=== PATIENT | female | born 1985 | race Caucasian/White ===

== ENCOUNTER 2019-07-23 12:54 | Emergency (ER) | payer OTHER, SELFPAY ==
--- OUTSIDE RECORDS SUMMARY | 2019-07-23 12:59 | XMS REPORT ---
:1985 [facility] [address] [place] [address] Care Team Providers Name Role Phone UNKNOWN, REFFERING Primary Care Provider Unavailable TOMY ELIAS Unavailable Unavailable LUIS FELIPE LAKHANI Unavailable Unavailable DANIELA ZAYAS Unavailable Unavailable CARLOS FLORES Unavailable Unavailable ILDA PETERSON Unavailable Unavailable Payers Payer Name Policy Type Policy Number Effective Date Expiration Date Problems This patient has no known problems. Allergies, Adverse Reactions, Alerts Allergy Allergy Status Severity Reaction(s) Onset Inactive Treating Comments Name Type Date Date Clinician Sulfa DA Active [place] 2018-04 (Sulfonamid - e 00:00:0 Antibiotics 0 ) iodine DA Active [place] 2018-04 00:00:0 0 cefixime DA Active [place] 2018-04 00:00:0 0 Medications This patient has no known medications. Results Test Description Test Time Test Comments Text Results Atomic Results Result Comments - 2019-03-01 FAX: Tomy Hirsch [phone] [place]: St: CHEST 16:16:00 REG 2 V [facility] 1985 Age/S: 33/F [address] [facility] Unit # : [id number] Loc: E.EXP [place], [place] Phys : Tomy Hrisch [address] Acct : [id number] Dis Date: Status: REG ER PHONE #: [phone] Exam Date: 03/01/2019 1604 FAX #: [phone] Reason: SOB EXAMS: CPT CODE: [id number] XR CHEST 2 V 66359 EXAMINATION: - XR CHEST 2 V. LOCATION: B2. HISTORY: SOB. COMPARISON: Radiograph dated 10/03/2018. TECHNIQUE: PA and lateral views of the chest were obtained. FINDINGS: The heart is normal in size. Mild right middle lobe and left lower lobe opacities are present. No acute osseous abnormality is identified. IMPRESSION: Mild right middle lobe and left lower lobe opacities , which may represent atelectasis or infiltrates. at 9799 Reported and signed by: Thierry Giron M.D. CC: Tomy GAN Technologist: LISA COOLEY Trnscrd Date/Time/By: 03/01/2019 (1616) : By: [email or web address] PAGE 1 Signed Report FAX: Tomy Hirsch [phone] [place]: St: REG --------- Name: [facility] 1985 Age/S: 33/F [address] [facility] Unit # : [id number] Loc: E.EXP [place], [place] Phys : Tomy Hirsch [address] Acct : [id number] Dis Date: Status: REG ER PHONE #: [phone] Exam Date: 03/01/2019 1604 FAX #: [phone] Reason: SOB EXAMS: CPT CODE: [id number] XR CHEST 2 V 83118 <Continued> Orig Print D/T: S: 03/01/2019 (7644) PAGE 2 Signed Report BASIC METABOLIC PANEL 2019-02-20 07:27:00 Test Item Value Reference Range Comments SODIUM (test code=NA) 141 mEq/L 134-147 POTASSIUM (test code=K) 4.0 mEq/L 3.4-5.0 CHLORIDE (test code=CL) 111 mEq/L 100-108 CARBON DIOXIDE (test code=CO2) 24 mEq/L 21-33 ANION GAP (test code=GAP) 10 0-20 GLUCOSE (test code=GLU) 88 mg/dL 70-110 BLOOD UREA NITROGEN (test code=BUN) 10 mg/dL 7-18 GLOMERULAR FILTRATION RATE (test 97.0 105-110 Units of measure=ml/min/1.73 code=GFR) m2 CREATININE (test code=CREAT) 0.7 mg/dL 0.6-1.3 CALCIUM (test code=CA) 8.2 mg/dL 8.0-10.5 CBC W/AUTO [id number] 06:43:00 Test Item Value Reference Range Comments WHITE BLOOD CELL (test code=WBC) 5.54 x10 3/uL 4.5-11.0 RED BLOOD CELL (test code=RBC) 4.10 x10 6/uL 3.54-5.02 HEMOGLOBIN (test code=HGB) 12.8 g/dL 11.0-15.0 HEMATOCRIT (test code=HCT) 39.2 % 33.0-45.0 MEAN CELL VOLUME (test code=MCV) 95.6 fL 81.0-99.0 MEAN CELL HGB (test code=MCH) 31.2 pg 27.0-33.0 MEAN CELL HGB CONCETRATION (test code=MCHC) 32.7 g/dL 33.0-37.0 RED CELL DISTRIBUTION WIDTH CV (test code=RDW) 12.8 % 11.5-14.5 RED CELL DISTRIBUTION WIDTH SD (test 44.7 fL 37.0-54.0 code=RDW-SD) PLATELET COUNT (test code=PLT) 188 x10 3/uL 150-400 MEAN PLATELET VOLUME (test code=MPV) 9.4 fL 7.0-9.0 NEUTROPHIL % (test code=NT%) 31.3 % 56.0-77.0 IMMATURE GRANULOCYTE % (test code=IG%) 0.2 % 0.0-2.0 LYMPHOCYTE % (test code=LY%) 57.4 % 14.0-32.0 MONOCYTE % (test code=MO%) 7.0 % 4.8-9.0 EOSINOPHIL % (test code=EO%) 3.6 % 0.3-3.7 BASOPHIL % (test code=BA%) 0.5 % 0.0-2.0 NUCLEATED RBC % (test code=NRBC%) 0.0 % 0-0 NEUTROPHIL # (test code=NT#) 1.73 x10 3/uL 2.0-7.6 IMMATURE GRANULOCYTE # (test code=IG#) 0.01 x10 3/uL 0.00-0.03 LYMPHOCYTE # (test code=LY#) 3.18 x10 3/uL 1.0-3.8 MONOCYTE # (test code=MO#) 0.39 x10 3/uL 0.1-0.8 EOSINOPHIL # (test code=EO#) 0.20 x10 3/uL 0.0-0.2 BASOPHIL # (test code=BA#) 0.03 x10 3/uL 0.0-0.2 NUCLEATED RBC # (test code=NRBC#) 0.00 x10 3/uL 0.0-0.1 MANUAL DIFF REQUIRED (test code=MDIFF) NO CBC W/AUTO [id number] 14:40:00 Test Item Value Reference Range Comments WHITE BLOOD CELL (test 5.19 x10 3/uL 4.5-11.0 code=WBC) RED BLOOD CELL (test 4.43 x10 6/uL 3.54-5.02 code=RBC) HEMOGLOBIN (test code=HGB) 13.6 g/dL 11.0-15.0 HEMATOCRIT (test code=HCT) 40.5 % 33.0-45.0 MEAN CELL VOLUME (test 91.4 fL 81.0-99.0 code=MCV) MEAN CELL HGB (test code=MCH) 30.7 pg 27.0-33.0 MEAN CELL HGB CONCETRATION 33.6 g/dL 33.0-37.0 (test code=MCHC) RED CELL DISTRIBUTION WIDTH 12.8 % 11.5-14.5 CV (test code=RDW) RED CELL DISTRIBUTION WIDTH 43.2 fL 37.0-54.0 SD (test code=RDW-SD) PLATELET COUNT (test 201 x10 3/uL 150-400 code=PLT) MEAN PLATELET VOLUME (test 9.0 fL 7.0-9.0 code=MPV) NEUTROPHIL % (test code=NT%) 26.6 % 56.0-77.0 IMMATURE GRANULOCYTE % (test 0.2 % 0.0-2.0 code=IG%) LYMPHOCYTE % (test code=LY%) 62.8 % 14.0-32.0 MONOCYTE % (test code=MO%) 7.5 % 4.8-9.0 EOSINOPHIL % (test code=EO%) 2.5 % 0.3-3.7 BASOPHIL % (test code=BA%) 0.4 % 0.0-2.0 NUCLEATED RBC % (test 0.0 % 0-0 code=NRBC%) NEUTROPHIL # (test code=NT#) 1.38 x10 3/uL 2.0-7.6 IMMATURE GRANULOCYTE # (test 0.01 x10 3/uL 0.00-0.03 code=IG#) LYMPHOCYTE # (test code=LY#) 3.26 x10 3/uL 1.0-3.8 MONOCYTE # (test code=MO#) 0.39 x10 3/uL 0.1-0.8 EOSINOPHIL # (test code=EO#) 0.13 x10 3/uL 0.0-0.2 BASOPHIL # (test code=BA#) 0.02 x10 3/uL 0.0-0.2 NUCLEATED RBC # (test 0.00 x10 3/uL 0.0-0.1 code=NRBC#) MANUAL DIFF REQUIRED (test NO SLIDE REVIEWED, CONSISTENT code=MDIFF) WITH AUTO DIFF. [id number] 10:06:00 Test Item Value Reference Range Comments AMYLASE (test code=JOSUÉ) 23 UNITS/L 25-115 [id number] 10:06:00 Test Item Value Reference Range Comments LIPASE (test code=LIP) 76 IUnit/L 73-393 HGBA1C%2019-02-19 09:05:00 Test Item Value Reference Range Comments HGBA1C% (test code=HGBA1C%) 4.9 %A1C 4.8-6.0 CBC W/AUTO [id number] 08:08:00 Test Item Value Reference Range Comments WHITE BLOOD CELL (test code=WBC) 5.19 x10 3/uL 4.5-11.0 RED BLOOD CELL (test code=RBC) 4.43 x10 6/uL 3.54-5.02 HEMOGLOBIN (test code=HGB) 13.6 g/dL 11.0-15.0 HEMATOCRIT (test code=HCT) 40.5 % 33.0-45.0 MEAN CELL VOLUME (test code=MCV) 91.4 fL 81.0-99.0 MEAN CELL HGB (test code=MCH) 30.7 pg 27.0-33.0 MEAN CELL HGB CONCETRATION (test code=MCHC) 33.6 g/dL 33.0-37.0 RED CELL DISTRIBUTION WIDTH CV (test code=RDW) 12.8 % 11.5-14.5 RED CELL DISTRIBUTION WIDTH SD (test 43.2 fL 37.0-54.0 code=RDW-SD) PLATELET COUNT (test code=PLT) 201 x10 3/uL 150-400 MEAN PLATELET VOLUME (test code=MPV) 9.0 fL 7.0-9.0 LYMPHOCYTE % (test code=LY%) % 14.0-32.0 MANUAL DIFF REQUIRED (test code=MDIFF) BASIC METABOLIC [id number] 07:27:00 Test Item Value Reference Range Comments SODIUM (test code=NA) 138 mEq/L 134-147 POTASSIUM (test code=K) 3.7 mEq/L 3.4-5.0 CHLORIDE (test code=CL) 110 mEq/L 100-108 CARBON DIOXIDE (test code=CO2) 23 mEq/L 21-33 ANION GAP (test code=GAP) 9 0-20 GLUCOSE (test code=GLU) 89 mg/dL 70-110 BLOOD UREA NITROGEN (test 11 mg/dL 7-18 code=BUN) GLOMERULAR FILTRATION RATE 97.0 105-110 Units of measure=ml/min/1.73 (test code=GFR) m2 CREATININE (test code=CREAT) 0.7 mg/dL 0.6-1.3 CALCIUM (test code=CA) 8.0 mg/dL 8.0-10.5 THYROID STIMULATING [id number] 07:27:00 Test Item Value Reference Range Comments THYROID STIMULATING HORMONE (test 2.66 0.42-5.47 Results in karen- [employer] code=TSH) Units/mL [id number] 00:23:00 Test Item Value Reference Range Comments TROPONIN-I (test < 0.015 ng/mL 0.000-0.045 Negative: <=0.045 code=TROPI) Positive: >=0.046 Correlation with serial results, other cardiac markers andclinical findings is necessary to determine the clinicalsignificance of this result. Results using different methodologies should not be comparedto one another as quantitative results may vary by method. VALPROIC ACID (DEPAKENE)2019-02-19 00:23:00 Test Item Value Reference Range Comments VALPROIC ACID (DEPAKENE) (test code=VALP) 45 mcg/mL 50.0-100.0 [id number] 21:11:00 Test Item Value Reference Range Comments TROPONIN-I (test < 0.015 ng/mL 0.000-0.045 Negative: <=0.045 code=TROPI) Positive: >=0.046 Correlation with serial results, other cardiac markers andclinical findings is necessary to determine the clinicalsignificance of this result. Results using different methodologies should not be comparedto one another as quantitative results may vary by method. COMMENTS: 3 troponins total (including troponin done in ED)BASIC METABOLIC [id number] 18:07:00 Test Item Value Reference Range Comments SODIUM (test code=NA) 141 mEq/L 134-147 POTASSIUM (test code=K) 5.1 mEq/L 3.4-5.0 SPECIMEN 1+ HEMOLYZED.Results known to be adversely affected by hemolysis are: Potassium Magnesium LDH Phosphorus CHLORIDE (test code=CL) 107 mEq/L 100-108 CARBON DIOXIDE (test code=CO2) 22 mEq/L 21-33 ANION GAP (test code=GAP) 17 0-20 GLUCOSE (test code=GLU) 95 mg/dL 70-110 BLOOD UREA NITROGEN (test 11 mg/dL 7-18 code=BUN) GLOMERULAR FILTRATION RATE 97.0 105-110 Units of measure=ml/min/1.73 (test code=GFR) m2 CREATININE (test code=CREAT) 0.7 mg/dL 0.6-1.3 CALCIUM (test code=CA) 8.4 mg/dL 8.0-10.5 [id number] 18:07:00 Test Item Value Reference Range Comments TROPONIN-I (test < 0.015 ng/mL 0.000-0.045 Negative: <=0.045 code=TROPI) Positive: >=0.046 Correlation with serial results, other cardiac markers andclinical findings is necessary to determine the clinicalsignificance of this result. Results using different methodologies should not be comparedto one another as quantitative results may vary by method. HCG SERUM [id number] 17:54:00 Test Item Value Reference Range Comments HCG SERUM QUAL (test code=HCGQL) SERUM NEGATIVE NEGATIVE - MRA NECK W/O [id number] 17:34:00 FAX: Juan Carlos Serrato MD [place]: St: REG Name: EUGENE GREWAL [facility] : 1985 Age/S: 33/F [address] [place] [address] Blvd Unit#: [id number] Loc: G.ERS[address] [place] [address] Phys: Juan Carlos Howell MD Acct: [id number] Dis Date: Status: REG ER PHONE #: [phone] Exam Date: 02/18/2019 1718 FAX #: [phone] Reason: left sided weakness EXAMS: CPT CODE: [id number] MRA NECK W/O CONT 95762 MR ANGIOGRAM NECK WITHOUT CONTRAST INDICATION: left sided weakness. TECHNIQUE: MR angiography of the neck was performed with [id number]-ua-hkbvec imaging and three-dimensional subtracted reconstructions. COMPARISONS:MRA head, CT head, MRI brain 02/18/2019 FINDINGS: Patient motion mildly limits this evaluation. The vertebral arteries reveal no aneurysm, dissection or high-grade luminal stenosis as visualized. The bilateral common carotid and internal carotid arteries reveal no aneurysm, dissection or high-grade luminal stenosis as visualized. IMPRESSION: 1. Patient motion mildly limits this evaluation. There is no high-grade arterial stenosis, arterial occlusion, dissection or aneurysm detected in the neck. CAROTID STENOSIS REFERENCE USING NASCET CRITERIA: % ICA stenosis=(1-narrowest ICA diameter/ diameter of distal cervical ICA) x 100 -Mild: <50% stenosis -Moderate: 50-69% stenosis -Severe: 70-94% stenosis - Near occlusion: 95-99% stenosis -Occluded: 100% stenosis at 4548 Reported and signed by: Carlos Oreilly D.O. PAGE 1 Signed Report (CONTINUED) FAX: Juan Carlos Serrato MD [phone]: KVNG St: REG Name: EUGENE GREWAL [facility] : 1985 Age/S: 33/F [address] [place] [address] Unit #: [id number] Loc: G.ERS[address] [place] [address] Phys: Juan Carlos Howell MD Acct: [id number] Dis Date: Status: REG ER PHONE #: [phone] Exam Date: 02/18/2019 1719 FAX #: [phone] Reason: left sided weakness EXAMS: CPT CODE: [id number] MRA NECK W/O CONT 05717 <Continued> CC: Juan Carlos Howell MD Technologist: Yana Flaherty RT( MR)(CT) Trnwird Date/Time/By: 02/18/2019 (2254) : By: [email or web address] Orig Print D/T: S: 02/18/2019 (1832) PAGE 2 Signed Report- MRI BRAIN W/O [id number] 17:30:00 FAX: Juan Carlos Serrato MD [phone] [place]: St: REG Name: EUGENE GREWAL [facility] : 1985 Age/S: 33/F [address] [place] [address] Unit#: [id number] Loc : Bl[place]ERS[address] [place] [address] Phys: Juan Carlos Howell MD Acct: [id number] Dis Date: Status: REG ER PHONE #: [phone] Exam Date: 02/18/2019 1718 FAX #: [phone] Reason: left sided weakness EXAMS: CPT CODE: [id number] MRI BRAIN W/O CONT 37118 MRI BRAIN WITHOUT CONTRAST INDICATION: Left-sided weakness, facial droop, seizure. TECHNIQUE: Multiple MR sequences of the brain were performed without contrast. COMPARISONS: CT head, MR angiogram head and neck 02/18/2019 FINDINGS: The paranasal sinuses are clear as visualized. There is a small right mastoid air cell effusion. The vascular flow voids are preserved. The cerebral ventricles are normal caliber. There is no restricted water diffusion. Thereis no cerebral mass effect, midline shift, intracranial hemorrhage or acute large vesselterritory cerebral cortical edema. There is no cerebral mass effect, midline shift, intracranial hemorrhage or acute large vessel territory cerebral cortical edema. Specifically, thehippocampal and parahippocampal gyri are symmetric and appear normal. There is no focal volume loss or mass. There is no edema. IMPRESSION: 1. Normal brain with no acute intracranial process. No evidence of acute ischemia or edema. 2. There is a small right mastoid air cell effusion. * * Electronically Signed by Zoie Douglas on at 1730 Reportedand signed by: Carlos Oreilly D.O. CC: Juan Carlos Howell MD Technologist: Yana Flaherty RT(MR)(CT) Trnscrd Date/Time/By: 2018 (8580) : By: [email or web address] Orig Print D/T: S: 02/18/2019 (2075) PAGE 1 Signed Report- MRA HEAD W/O [id number] 17:24:00 FAX: Juan Carlos Serrato MD [phone] [place]: St: REG-- Name: EUGENE GREWAL [facility] : 1985 Age/S: 33/F [address] [place] [address] Blvd Unit#: [id number] Loc: G.ERS[address] [place] [address] Phys: Juan Carlos Howell MD Acct: [id number] Dis Date: Status: REG ER PHONE #: [phone] Exam Date: 02/18/2019 1719 FAX #: [phone] Reason: left sided weakness EXAMS: CPT CODE: [id number] MRA HEAD W/O CONTRAST 48718 MR ANGIOGRAM HEAD INDICATION: Left-sided weakness, facial droop, seizure. TECHNIQUE: MR angiography of the head was performed with [id number]-rd-htvuqj imaging and three-dimensional subtracted reconstructions. COMPARISONS: CT brain 02/18/2019, MRI brain 02/18/2019 FINDINGS: The vertebral arteries reveal no aneurysm, dissection or high-grade luminal stenosis. The basilar artery reveals no aneurysm, dissection, high-grade stenosis or occlusion. The posterior cerebral arteries reveal no aneurysm, dissection or high-grade luminal stenosis. There is a right posterior to indicating cerebral artery. The internal carotid arteries reveal no aneurysm, dissection or high-grade luminal stenosis. The middle cerebral arteries reveal no aneurysm, dissection or high-grade luminal stenosis. Theanterior cerebral arteries reveal no aneurysm, dissection or high- grade luminal stenosis. IMPRESSION: 1. Patient motion mildly limits the evaluation. There is no arterial high-grade stenosis, occlusion, dissection, aneurysm or vascular malformation detected. CAROTID STENOSIS REFERENCE USING NASCET CRITERIA: % ICA stenosis=(1-narrowest ICA diameter/ diameter of distal cervical ICA) x 100 -Mild: <50% stenosis -Moderate: 50-69% stenosis -Severe: 70-94% stenosis PAGE 1 Signed Report (CONTINUED) FAX: Juan Carlos Serrato MD [phone] [place]: St: REG Name: CARMINA EUGENE [facility] : 1985 Age/S: 33/F [address] [place] [address] Blvd Unit #: [id number] Loc:G.ERS3 [place] [address] Phys: Juan Carlos Howell MD Acct: [id number] Dis Date: Status: REG ER PHONE #: [phone] Exam Date: 02/18/2019 1719 FAX #: [phone] Reason: left sided weakness EXAMS: CPT CODE: [id number] MRA HEAD W/O CONTRAST 84694 <Continued> -Near occlusion: 95-99 % stenosis -Occluded: 100% stenosis Electronically Signed by Zoie Oreilly on 02/18 at 1724 Reported and signed by: Carlos Oreilly D.O. CC: Juan Carlos Howell MD Technologist: Yana Flaherty RT(MR)(CT) Trnwird Date/Time/By: 2018 (1723) : By: [email or web address] Orig Print D/T: S: 02/18/2019 (1726) PAGE 2 Signed Report- CT HEAD/BRAIN W/O [id number] 16:30:00 Name: EUGENE GREWAL [facility] [place] : 1985 Age/S: 33 / F [address] [place] [address] Unit #: [id number] Loc: [place] [id number] Phys: Juan Carlos Howell MD Acct: [id number] Dis Date: Status: PRE ER PHONE #: [phone] Exam Date: 02/18/2019 1612 FAX #: [phone] Reason: LEFT SIDED WEAKNESS EXAMS: CPTCODE: [id number] CT HEAD/BRAIN W/O CONT [address] HEAD INDICATION: Left-sided weakness. Facial droop. Seizure. TECHNIQUE: Unenhanced CT was performed from the skull vertex to the foramen magnum with axial, coronal and sagittal reconstructions. Radiation dose length product 810 mGy-cm. COMPARISONS: CT head 11/19/2018, 08/22/2018 FINDINGS: The paranasal sinuses areclear as visualized. There is suggestion of a trace right mastoid air cell effusion. The left mastoid air cells are clear. There is no acute depressed skull fracture.The cerebral ventricles are normal caliber. There is no cerebral mass effect, midline shift, intracranial hemorrhage or acute large vessel territory cerebral cortical edema. IMPRESSION: 1. There is no acute intracranial process. No intracranial hemorrhage or acute cerebral edema. The [place] Stroke Program Early CT Score (ASPECTS) is 10/10. This report contains findings that may be critical to patient care. The findings were discussed with Dr. Obando at 02/18/2019 4:30 PM ADVISORY INTERN. at 1630 Reported and signed by: Carlos Oreilly D.O. CC: Juan Carlos Howell MD Technologist:Opal Resendez, RT (R)(CT) CTDI: DLP: Trnscb Date/Time: 02/18/2019 (1629) [email or web address] Orig Print D/T: S: 02/18/2019 (1434) CTDI : DLP: PAGE 1 Signed ReportPROTHROMBIN [id number] 16:20:00 Test Item Value Reference Range Comments PROTHROMBIN TIME PATIENT 13.1 SECONDS 9.3-12.9 (test code=PTP) INTERNATIONAL NORMAL RATIO 1.2 0.8-1.2 TARGET INR BY (test code=INR) INDICATION Indication INR1. Prophylaxis of venous thrombosis 2.0 - 3.0 (orthopedic surgery), Prophylaxis of venous thrombosis (other than high-risk surgery), Treatment of Deep Vein Thrombosis/Pulmonary Embolism, Prevention of systemic embolism - Tissue heart valves, Acute Myocardial Infarction (to prevent systemic embolism), Valvular heart disease, Atrial Fibrillation, Bileaflet mechanical valve in aortic position.2. Mechanical prosthetic valves (high risk), 2.5 - 3.5 Presence of Lupus Anticoagulant or Antiphospholipid Antibodies, Prevention of systemic embolism - Acute Myocardial Infarction (to prevent recurrent infarct). THROMBOPLASTIN TIME [id number] 16:20:00 Test Item Value Reference Range Comments THROMBOPLASTIN TIME PARTIAL 32.8 Seconds 25.0-39.5 Therapeutic Range: (test code=PTT) 61.8-83.8 Sec Effective 12/05/2013 CBC W/O [id number] 16:14:00 Test Item Value Reference Range Comments WHITE BLOOD CELL (test code=WBC) 4.81 x10 3/uL 4.5-11.0 RED BLOOD CELL (test code=RBC) 4.79 x10 6/uL 3.54-5.02 HEMOGLOBIN (test code=HGB) 14.8 g/dL 11.0-15.0 HEMATOCRIT (test code=HCT) 43.5 % 33.0-45.0 MEAN CELL VOLUME (test code=MCV) 90.8 fL 81.0-99.0 MEAN CELL HGB (test code=MCH) 30.9 pg 27.0-33.0 MEAN CELL HGB CONCETRATION (test code=MCHC) 34.0 g/dL 33.0-37.0 RED CELL DISTRIBUTION WIDTH CV (test code=RDW) 12.9 % 11.5-14.5 RED CELL DISTRIBUTION WIDTH SD (test 42.8 fL 37.0-54.0 code=RDW-SD) PLATELET COUNT (test code=PLT) 229 x10 3/uL 150-400 MEAN PLATELET VOLUME (test code=MPV) 9.0 fL 7.0-9.0 - CT ABD PELVIS W/O [id number] 05:31:00 FAX: Ellen Rich MD [place]: St: REG Name: EUGENE GREWAL [facility] : 1985 Age/S: 33/F [address] [facility] Unit: [id number] Loc: ELIAN [place], [place] Phys: [place] [id number] Acct: [id number] Dis Date: Status: REG ER PHONE #: [phone] Exam Date: 12/18/2018 0519 FAX #: [phone] Reason: abd pain EXAMS: CPT CODE: [id number] CT ABD PELVIS W/O CONT 91701 EXAM: CT ABDOMEN AND PELVIS WITHOUT CONTRAST. INDICATION: Abdominal pain COMPARISON: July 21, 2014 TECHNIQUE: Axial CT imaging of the abdomen and pelvis was obtained without administration of intravenous contrast. Coronal and sagittal reformatted images were submitted for review. IV contrast: None FINDINGS: The heart size is normal. The lung bases are clear. No pericardial or pleural effusion is identified. The noncontrast appearance of the liver, spleen, gallbladder, pancreas, and left adrenal glands is unremarkable. No focal liver lesionsare identified. No intrahepatic biliary duct dilatation. There is a cystic lesion in the region of the right adrenal gland measuring 3.9 x 3.5 cm. This is similar to slightly larger compared to the prior examination. The kidneys are normal in size and appearance. Nohydronephrosis or nephrolithiasis is identified. The urinary bladder is normal.The stomach, small bowel, large bowel , and appendix are normal in appearance. No bowel obstruction is identified. No lymphadenopathy is identified in the abdomen or pelvis. No free fluid or free air. The IVC is normal. The abdominal aorta is normal in course and caliber. The uterus is normal in size. There is a right ovarian cyst measuring 2.7 x 1.7 cm. No acute osseous abnormality is identified. IMPRESSION: No acute abnormality in the abdomen or pelvis. Normal appendix. Right ovarian cyst measuring 2.7 x 1.7 cm. LOCATION: B2 This CT exam was performed according to our departmental dose PAGE 1 Signed Report (CONTINUED) FAX: Ellen Rich MD [place]: St: REG Name: EUGENE GERWAL [facility] : 1985 Age/S: 33/F [address] [facility] Unit: [id number] Loc: [place], [place] Phys: Ellen Velasquez [facility] [address] Acct: [id number] Dis Date: Status: REG ER PHONE #: [phone] Exam Date: 12/18/2018518 FAX #: [phone] Reason: abd painEXAMS: CPT CODE: [id number] CT ABD PELVIS W/O CONT 45572 < Continued> optimization program, which includes automated exposure control, adjustment of the mA and or kV according to patient size and/ or use of iterative reconstruction technique. at 0531 Reported and signed by: Latha Flanagan M.D. CC: Ellen Velasquez MD Technologist: SANIA Liu Dt/Tm: 12/18/2018 (0531) 16 Orig Print D /T: S: 12/18/2018 (0534 PAGE 2 Signed ReportCOMPREHENSIVE METABOLIC [id number] 04:22:00 Test Item Value Reference Range Comments SODIUM (test code=NA) 139 mmol/l 134.0-147.0 POTASSIUM (test code=K) 3.6 mmol/L 3.6-5.2 CHLORIDE (test code=CL) 102 mmol/l 98.0-107.0 CARBON DIOXIDE (test code=CO2) 23.7 mmol/l 21.0-33.0 ANION GAP (test code=GAP) 16.9 0-20 GLUCOSE (test code=GLU) 101 mg/dl 70.0-110.0 BLOOD UREA NITROGEN (test code=BUN) 16 mg/dl 7.0-18.0 CREATININE (test code=CREAT) 0.62 mg/dL 0.60-1.30 GFR NON BLACK (test code=GFRNONBLACK) 118 mL/min 105-110 GFR BLACK (test code=GFRBLACK) 143 mL/min 127-133 TOTAL PROTEIN (test code=PROT) 7.9 gm/dL 6.4-8.2 ALBUMIN (test code=ALB) 4.1 gm/dl 3.2-4.7 CALCIUM (test code=CA) 10.1 mg/dl 8.0-10.5 BILIRUBIN TOTAL (test code=BILT) 0.3 mg/dl 0.0-1.0 SGOT/AST (test code=AST) 14 Units/L 15.0-37.0 SGPT/ALT (test code=ALT) 29 Units/L 12.0-78.0 ALKALINE PHOSPHATASE TOTAL (test code=ALKP) 54 Units/L 50.0-136.0 [id number] 04:22:00 Test Item Value Reference Range Comments LIPASE (test code=LIP) 105 Units/L 65.0-230.0 [id number] 04:22:00 Test Item Value Reference Range Comments TROPONIN-I (test <0.02 NG/ML 0.00-0.06 REFERENCE RANGE TROPONIN I code=TROPI) HEALTHY INDIVIDUALS: <0.06 ng/mL R/O ISCHEMIA: 0.07 - 0.60 ng/mL CUT-OFF RANGE FOR AMI: 0.60 - 1.5 ng/mL DRUGS OF ABUSE SCREEN [id number] 04:18:00 Test Item Value Reference Range Comments URN COCAINE (test POSITIVE NEGATIVE UNCONFIRMED INITIAL SCREENING code=COCAURN) ONLY; SUGGEST ADDITIONALCONFIRMATORY TESTING.Cocaine cut-off concentration: 300 ng/mL URN CANNABINOIDS (test POSITIVE NEGATIVE UNCONFIRMED INITIAL SCREENING code=CANNABURN) ONLY; SUGGEST ADDITIONALCONFIRMATORY TESTING.Cannabinoids cut-off concentration: 50 ng/mL URN AMPHETAMINE (test NEGATIVE NEGATIVE Amphetamine cut-off concentration: code=AMPHETURN) 1000 ng/mL URN BARBITURATE (test NEGATIVE NEGATIVE Barbiturate cut-off concentration: code=BARBITURN) 200 ng/mL URN BENZODIAZEPINE (test NEGATIVE NEGATIVE Benzodiazepine cut-off code=BENZOURN) concentration: 200 ng/mL URN OPIATES (test NEGATIVE NEGATIVE Opiates cut-off concentration: 200 code=OPIATURN) ng/mL URN PHENCYCLIDINE (PCP) NEGATIVE NEGATIVE Phencyclidine(PCP) cut-off (test code=PHENCURN) concentration: 25 ng/ml URN METHADONE (test NEGATIVE NEGATIVE Methadone cut-off concentration: code=METHAURN) 300 ng/mL COMPREHENSIVE METABOLIC [id number] 04:10:00 Test Item Value Reference Range Comments SODIUM (test code=NA) 139 mmol/l 134.0-147.0 POTASSIUM (test code=K) 3.6 mmol/L 3.6-5.2 CHLORIDE (test code=CL) 102 mmol/l 98.0-107.0 CARBON DIOXIDE (test code=CO2) 23.7 mmol/l 21.0-33.0 ANION GAP (test code=GAP) 16.9 0-20 GLUCOSE (test code=GLU) mg/dl 70.0-110.0 BLOOD UREA NITROGEN (test code=BUN) mg/dl 7.0-18.0 CREATININE (test code=CREAT) mg/dL 0.60-1.30 GFR NON BLACK (test code=GFRNONBLACK) mL/min 105-110 GFR BLACK (test code=GFRBLACK) mL/min 127-133 TOTAL PROTEIN (test code=PROT) gm/dL 6.4-8.2 ALBUMIN (test code=ALB) gm/dl 3.2-4.7 CALCIUM (test code=CA) mg/dl 8.0-10.5 BILIRUBIN TOTAL (test code=BILT) mg/dl 0.0-1.0 SGOT/AST (test code=AST) Units/L 15.0-37.0 SGPT/ALT (test code=ALT) Units/L 12.0-78.0 ALKALINE PHOSPHATASE TOTAL (test code=ALKP) Units/L 50.0-136.0 [id number] 04:10:00 Test Item Value Reference Range Comments LIPASE (test code=LIP) Units/L 65.0-230.0 URINALYSIS [id number] 04:09:00 Test Item Value Reference Range Comments UA COLOR (test code=COLU) YELLOW UA APPEARANCE (test code=APPU) SLHZY UA GLUCOSE DIPSTICK (test code=DGLUU) NORMAL mg/dl NORMAL UA BILIRUBIN DIPSTICK (test code=BILU) NEGATIVE mg/dL NEGATIVE UA KETONE DIPSTICK (test code=KETU) NEGATIVE mg/dl NEGATIVE UA SPECIFIC GRAVITY (test code=SGU) 1.015 1.000-1.030 UA BLOOD DIPSTICK (test code=JULIO) 10 Delfin/micL Delfin/micL NEGATIVE UA PH DIPSTICK (test code=JEFFERY) 8.0 5.0-9.0 UA PROTEIN DIPSTICK (test code=PROU) NEGATIVE mg/dl NEGATIVE UA UROBILINIOGEN DIPSTICK (test NORMAL mg/dl NORMAL code=URO) UA NITRITE DIPSTICK (test code=JOHANNE) NEGATIVE NEGATIVE UA LEUKOCYTE ESTERASE DIPSTICK (test NEGATIVE Slim/micL NEGATIVE code=LEUU) UA WBC (test code=WBCU) 3-5/HPF WBC/HPF NONE UA RBC (test code=RBCU) 0-2 RBC/HPF 0-3 UA EPITHELIAL CELLS (test code=EPIU) 5-10 EPI/HPF 0-3 UA BACTERIA (test code=BACU) MANY NONE UA MUCUS (test code=MUCU) 2+ UR HCG [id number] 04:09:00 Test Item Value Reference Range Comments UR HCG QUAL (test code=HCGQLU) NEGATIVE NEGATIVE URINALYSIS [id number] 04:05:00 Test Item Value Reference Range Comments UA COLOR (test code=COLU) YELLOW UA APPEARANCE (test code=APPU) SLHZY UA GLUCOSE DIPSTICK (test code=DGLUU) NORMAL mg/dl NORMAL UA BILIRUBIN DIPSTICK (test code=BILU) NEGATIVE mg/dL NEGATIVE UA KETONE DIPSTICK (test code=KETU) NEGATIVE mg/dl NEGATIVE UA SPECIFIC GRAVITY (test code=SGU) 1.015 1.000-1.030 UA BLOOD DIPSTICK (test code=JULIO) 10 Delfin/micL Delfin/micL NEGATIVE UA PH DIPSTICK (test code=JEFFERY) 8.0 5.0-9.0 UA PROTEIN DIPSTICK (test code=PROU) NEGATIVE mg/dl NEGATIVE UA UROBILINIOGEN DIPSTICK (test NORMAL mg/dl NORMAL code=URO) UA NITRITE DIPSTICK (test code=JOHANNE) NEGATIVE NEGATIVE UA LEUKOCYTE ESTERASE DIPSTICK (test NEGATIVE Slim/micL NEGATIVE code=LEUU) UA WBC (test code=WBCU) WBC/HPF NONE UA RBC (test code=RBCU) RBC/HPF 0-3 UA EPITHELIAL CELLS (test code=EPIU) EPI/HPF 0-3 UA BACTERIA (test code=BACU) NONE UR HCG [id number] 04:05:00 Test Item Value Reference Range Comments UR HCG QUAL (test code=HCGQLU) NEGATIVE NEGATIVE CBC W/AUTO [id number] 04:04:00 Test Item Value Reference Range Comments WHITE BLOOD CELL (test code=WBC) 10.8 K/mm3 4.5-11.0 RED BLOOD CELL (test code=RBC) 4.71 M/mm3 3.80-5.20 HEMOGLOBIN (test code=HGB) 14.2 gm/dL 12.0-16.0 HEMATOCRIT (test code=HCT) 42.4 % 36.0-48.0 MEAN CELL VOLUME (test code=MCV) 90.0 UM3 82.0-99.0 MEAN CELL HGB (test code=MCH) 30.1 UUG 25.5-32.5 MEAN CELL HGB CONCETRATION (test code=MCHC) 33.5 gm/dL 29.0-35.5 RED CELL DISTRIBUTION WIDTH (test code=RDW) 13.2 % 11.5-15.0 PLATELET COUNT (test code=PLT) 236 K/mm3 150-400 MEAN PLATELET VOLUME (test code=MPV) 8.9 fl 7.4-10.4 NEUTROPHIL % (test code=NT%) 63.2 % 49.0-76.0 LYMPHOCYTE % (test code=LY%) 27.6 % 23.0-38.0 MONOCYTE % (test code=MO%) 8.2 % 1.0-10.0 EOSINOPHIL % (test code=EO%) 0.4 % 1.0-5.0 BASOPHIL % (test code=BA%) 0.3 % 0.0-1.0 NEUTROPHIL # (test code=NT#) 6.8 K/mm3 2.4-6.3 LYMPHOCYTE # (test code=LY#) 3.0 K/mm3 1.2-4.0 MONOCYTE # (test code=MO#) 0.9 K/mm3 0.0-0.6 EOSINOPHIL # (test code=EO#) 0.0 K/MM3 0.0-0.7 BASOPHIL # (test code=BA#) 0.0 K/mm3 0.0-0.2 URINALYSIS [id number] 04:02:00 Test Item Value Reference Range Comments UA COLOR (test code=COLU) YELLOW UA APPEARANCE (test code=APPU) SLHZY UA GLUCOSE DIPSTICK (test code=DGLUU) NORMAL mg/dl NORMAL UA BILIRUBIN DIPSTICK (test code=BILU) NEGATIVE mg/dL NEGATIVE UA KETONE DIPSTICK (test code=KETU) NEGATIVE mg/dl NEGATIVE UA SPECIFIC GRAVITY (test code=SGU) 1.015 1.000-1.030 UA BLOOD DIPSTICK (test code=JULIO) 10 Delfin/micL Delfin/micL NEGATIVE UA PH DIPSTICK (test code=JEFFERY) 8.0 5.0-9.0 UA PROTEIN DIPSTICK (test code=PROU) NEGATIVE mg/dl NEGATIVE UA UROBILINIOGEN DIPSTICK (test NORMAL mg/dl NORMAL code=URO) UA NITRITE DIPSTICK (test code=JOHANNE) NEGATIVE NEGATIVE UA LEUKOCYTE ESTERASE DIPSTICK (test NEGATIVE Slim/micL NEGATIVE code=LEUU) UA WBC (test code=WBCU) WBC/HPF NONE UA RBC (test code=RBCU) RBC/HPF 0-3 UA EPITHELIAL CELLS (test code=EPIU) EPI/HPF 0-3 UA BACTERIA (test code=BACU) NONE UR HCG [id number] 04:02:00 Test Item Value Reference Range Comments UR HCG QUAL (test code=HCGQLU) NEGATIVE TSH (Ultra Sensitive)2017-10-19 17:01:00 Test Item Value Reference Range Comments TSH (test code=TSH) 0.80 mIU/L 0.47-4.68 URINALYSIS WITH [id number] 16:34:00 Test Item Value Reference Range Comments Color (test code=UCOLR) YELLOW Clarity (test code=UCLAR) CLEAR Glucose (test code=UGLUC) NEGATIVE NEGATIVE Bilirubin (test code=UBILI) NEGATIVE NEGATIVE Ketones (test code=UKET) 15 NEGATIVE Specific [place] (test 1.015 1.005-1.030 code=USPGR) Blood (test code=UBLD) NEGATIVE NEGATIVE PH (test code=UPH) 8.0 4.5-8.0 Protein (test code=UPROT) NEGATIVE NEGATIVE Urobilinogen (test code=U UROB) 0.2 >0.2 Nitrite (test code=UNITR) NEGATIVE NEGATIVE Leukocyte Esterase (test NEGATIVE NEGATIVE code=ULEUK) WBC (test code=WBCUR) 0-1 0-5 RBC (test code=RBCUR) None Seen 0-5 Epithial Cells (test code=U 40-50 0-10 EPI) Mucous (test code=UMUC) Small None Seen Bacteria (test code=UBACT) 1+ None Seen,Trace Crystals Urine (test Moderate Amorphous Phosphates None Seen code=URCRYS) Urine Casts (test code=UR CAST) None Seen None Seen [id number] 16:29:00 Test Item Value Reference Range Comments aPTT (test code=PTT) 28.3 seconds 23.0-33.0 PT AND [id number] 16:29:00 Test Item Value Reference Range Comments Protime (test code=PT) 10.4 seconds 9.0-11.9 INR (test code=INR) 1.0 0.9-1.1 INR results are intended ONLY to monitor Oral Anticoagulant therapy in stablized patients. The INR Therapeutic Range is 2.0 - 3.0 Patients with a mechanical heart, the INR Range is 2.5 - 3.5 DRUG SCREEN [id number] 16:27:00 Test Item Value Reference Range Comments PH (test code=UPH) 8.0 Specific [place] 1.010 (test code=USPGR) FT (test Negative (qualifier code=AMPHET) value) FT (test code=ZULEIKA) Negative (qualifier value) FT (test code=BENZO) Negative (qualifier value) FT (test code=BAIRON) Negative (qualifier value) FT (test code=MTD) Negative (qualifier value) FT (test code=OPIAT) Negative (qualifier value) FT (test code=PCP) Negative (qualifier The following table value) provides an interpretive guide for the Drugs of Abuse ran on the [employer] 5.1 analyzer listed there in: Amphetamines < 1000 ng/ml=Negative Barbituates < 200 ng/ml=Negative Benzodiazapines < 200 ngml=Negative Cocaine < 300 ng/ml=Negative Methadone < 300 ng/ml=Negative Opiate < 300 ng/ml=Negative PCP < 25 ng/ml=Negative THC < 50 ng/ml=Negative Results equal to or greater than the above cut-off values=Presumptive Positive. Confirmation of Presumptive Positive results are available upon request. Cannabinoids, THC Presumptive Positive; (test code=THC) Confirmation Upon Request [id number] 16:25:00 Test Item Value Reference Range Comments Magnesium (test code=MG) 2.3 mg/dl 1.6-2.3 [id number] 16:25:00 Test Item Value Reference Range Comments Glucose (test code=GLU) 101 mg/dl 75-110 BUN (test code=BUN) 14.0 mg/dl 6.0-17.0 Creatinine (test 0.7 mg/dl 0.4-1.2 code=CREA) Sodium (test code=NA) 141 mmol/l 137-145 Potassium (test code=K) 4.4 mmol/l 3.5-5.0 Chloride (test code=CL) 105 mmol/l 98-107 CO2 (test code=CO2) 24 mmol/l 22-30 Calcium (test code=CALC) 10.1 mg/dl 8.4-10.2 T Protein (test code=TP) 7.2 gm/dl 5.1-8.7 Albumin (test code=ALB) 4.4 gm/dl 3.5-4.6 A/G Ratio (test 1.6 % 1.1-2.2 code=AGRAT) AST (SGOT) (test 25 U/L 11-36 code=AST) ALT (SGPT) (test 33 U/L 11-40 code=ALT) Alkaline Phos (test 49 U/L 47-114 code=ALKP) Total Bilirubin (test 0.5 mg/dl 0.2-1.2 code=TBIL) Globulin (test 2.8 gm/dl 2.3-3.5 code=GLOBU) Calcium, Corrected (test 9.8 mg/dl 8.4-10.2 Various formulas exist for code=CALCCORR) corrected serum calcium results, each yielding different values. This corrected result was based on the formula: Corrected Calcium=SerumCalcium + [0.8 * ( 4 - SerumAlbumin)] EGFR if >60 (test code=EGFRAA) mL/min/1.73m\\S\\2 EGFR if Non- >60 Estimated Glomerular [place] (test mL/min/1.73m\\S\\2 Filtration Rate (eGFR) code=EGFRNA) Reference Intervals Decision Points for 18 years and older and average body mass: >=60 Does not exclude kidney disease. 30 - 59 Suggests moderate chronic kidney disease and indicates the need for further investigation including assessment of proteinuria and cardiovascular factors. < 30 Usually indicates a need for referral for assessment and management of chronic kidney failure. CT HEAD W/O [id number] 16:13:38Procedure: CT HEAD W/O CONTRASTExam Date : 10/19/2017 3:14 PMOrdering Provider: YOANDY Limoninical Indication: SeizureComparison: 10/10/2017Technique: Using a helical scanner, sequential axial imaging of the brain wasobtained without the administration of intravenous contrast. The exam wasobtained from the skull base to vertex. This exam was performed according to theour departmental dose-optimization program which includes automated exposurecontrol, adjustment of the mA and/or kV according to patient size and/or use ofiterative reconstruction techniques.Findings:Ventricular size and configuration are normal.There is no midline shift or hydrocephalus.There is no acute intracranial hemorrhage or mass effect.There is no acute infarct.Cortical francois matter, subcortical white matter, and periventricular white matterhave normal appearance.The calvarium is intact. There is no fracture.There is no lytic or sclerotic lesion.The visualized paranasal sinuses and mastoid air cells are clear.IMPRESSION: Negative CT scan of the brain without intravenous contrast administration.This final report waselectronically signed by Dr Louis Zheng MD 10/19/20174:07 PMDictated By: LOUIS ZHENGDate: 10/19/2017 16:13PREGNANCY TEST, Serum [id number] 16:13:00 Test Item Value Reference Range Comments (Serum) (test code=PREGS) Negative CBC WITH AUTO [id number] 16:08:00 Test Item Value Reference Range Comments WBC (test code=WBC) 6.65 10\\S\\3/ul 4.80-10.80 RBC (test code=RBC) 4.53 10\\S\\6/ul 4.20-5.40 Hemoglobin (test code=HGB) 13.7 gm/dl 12.0-14.0 Hematocrit (test code=HCT) 41.6 % 37.0-47.0 MCV (test code=MCV) 91.8 fL 81.0-99.0 MCH (test code=MCH) 30.2 pg 27.0-31.0 MCHC (test code=MCHC) 32.9 gm/dl 33.0-37.0 RDW (test code=RDWVC) 13.3 % 11.5-14.5 Platelet (test code=PLT) 202 10\\S\\3/ul 130-400 MPV (test code=MPV) 8.9 fL 7.4-10.4 "NOT MEASURED" RESULTS ARE DISPLAYED WHEN THE INSTRUMENT HAS A SUPPRESSED OR UNREPORTABLE RESULT. THIS WILL MOST OFTEN HAPPEN WITH THE MPV WHEN THERE IS AN ABNORMAL PLATELET DISTRIBUTION DUE TO A CRITICAL LOW VALUE OR PLATELET CLUMPING. THE RDW MAY BE SUPPRESSED IF THERE ARE MULTIPLE PEAKS PRESENT ON THE RBC HISTOGRAM. IN THIS CASE, A MANUAL REVIEW OF THE SLIDE WILL BE PERFORMED, AND RBC MORPHOLOGY WILL BE NOTED ON THE REPORT. NE% (test code=NE) 49.7 % 42.0-75.0 LY% (test code=LY) 39.4 % 13.0-42.0 MO% (test code=MO) 9.2 % 4.0-14.0 EO% (test code=EO) 1.2 % 1.0-3.0 BA% (test code=BA) 0.2 % 1.0-3.0 IG% (test code=IG%) 0.3 % 0.0-0.4 AUTO DIFFLACTIC ACID [id number] 11:50:00 Test Item Value Reference Range Comments LACTATE (test code=LAC) 1.1 mmol/l 0.7-2.0 [id number] 11:50:00 Test Item Value Reference Range Comments Valproic Acid (test 88.5 ug/ml 50.0-120.0 Reference Range has been code=VALPR) adjusted to reflect Methodology recommendations. [id number] TEST, Serum [id number] 11:42:00 Test Item Value Reference Range Comments (Serum) (test code=PREGS) Negative [id number] WITH [id number] 11:41:00 Test Item Value Reference Range Comments Color (test code=UCOLR) YELLOW Clarity (test code=UCLAR) CLOUDY Glucose (test code=UGLUC) NEGATIVE NEGATIVE Bilirubin (test code=UBILI) NEGATIVE NEGATIVE Ketones (test code=UKET) 15 NEGATIVE Specific [place] (test code=USPGR) 1.015 1.005-1.030 Blood (test code=UBLD) LARGE NEGATIVE PH (test code=UPH) 6.5 4.5-8.0 Protein (test code=UPROT) TRACE NEGATIVE Urobilinogen (test code=U UROB) 0.2 >0.2 Nitrite (test code=UNITR) NEGATIVE NEGATIVE Leukocyte Esterase (test code=ULEUK) NEGATIVE NEGATIVE WBC (test code=WBCUR) 5-10 0-5 RBC (test code=RBCUR) 20-30 0-5 Epithial Cells (test code=U EPI) 20-30 0-10 Mucous (test code=UMUC) Small None Seen Bacteria (test code=UBACT) Trace None Seen,Trace [id number] 11:37:00 Test Item Value Reference Range Comments Glucose (test code=GLU) 92 mg/dl 75-110 BUN (test code=BUN) 7.0 mg/dl 6.0-17.0 Creatinine (test 0.7 mg/dl 0.4-1.2 code=CREA) Sodium (test code=NA) 143 mmol/l 137-145 Potassium (test code=K) 3.7 mmol/l 3.5-5.0 Chloride (test code=CL) 106 mmol/l 98-107 CO2 (test code=CO2) 24 mmol/l 22-30 Calcium (test code=CALC) 9.7 mg/dl 8.4-10.2 T Protein (test code=TP) 7.1 gm/dl 5.1-8.7 Albumin (test code=ALB) 4.4 gm/dl 3.5-4.6 A/G Ratio (test 1.6 % 1.1-2.2 code=AGRAT) AST (SGOT) (test 23 U/L 11-36 code=AST) ALT (SGPT) (test 32 U/L 11-40 code=ALT) Alkaline Phos (test 56 U/L 47-114 code=ALKP) Total Bilirubin (test 0.4 mg/dl 0.2-1.2 code=TBIL) Globulin (test 2.7 gm/dl 2.3-3.5 code=GLOBU) Calcium, Corrected (test 9.4 mg/dl 8.4-10.2 Various formulas exist for code=CALCCORR) corrected serum calcium results, each yielding different values. This corrected result was based on the formula: Corrected Calcium=SerumCalcium + [0.8 * ( 4 - SerumAlbumin)] EGFR if >60 (test code=EGFRAA) mL/min/1.73m\\S\\2 EGFR if Non- >60 Estimated Glomerular [place] (test mL/min/1.73m\\S\\2 Filtration Rate (eGFR) code=EGFRNA) Reference Intervals Decision Points for 18 years and older and average body mass: >=60 Does not exclude kidney disease. 30 - 59 Suggests moderate chronic kidney disease and indicates the need for further investigation including assessment of proteinuria and cardiovascular factors. < 30 Usually indicates a need for referral for assessment and management of chronic kidney failure. [id number] WITH AUTO [id number] 11:35:00 Test Item Value Reference Range Comments WBC (test code=WBC) 4.44 10\\S\\3/ul 4.80-10.80 RBC (test code=RBC) 4.28 10\\S\\6/ul 4.20-5.40 Hemoglobin (test code=HGB) 13.1 gm/dl 12.0-14.0 Hematocrit (test code=HCT) 39.4 % 37.0-47.0 MCV (test code=MCV) 92.1 fL 81.0-99.0 MCH (test code=MCH) 30.6 pg 27.0-31.0 MCHC (test code=MCHC) 33.2 gm/dl 33.0-37.0 RDW (test code=RDWVC) 13.3 % 11.5-14.5 Platelet (test code=PLT) 217 10\\S\\3/ul 130-400 MPV (test code=MPV) 9.0 fL 7.4-10.4 "NOT MEASURED" RESULTS ARE DISPLAYED WHEN THE INSTRUMENT HAS A SUPPRESSED OR UNREPORTABLE RESULT. THIS WILL MOST OFTEN HAPPEN WITH THE MPV WHEN THERE IS AN ABNORMAL PLATELET DISTRIBUTION DUE TO A CRITICAL LOW VALUE OR PLATELET CLUMPING. THE RDW MAY BE SUPPRESSED IF THERE ARE MULTIPLE PEAKS PRESENT ON THE RBC HISTOGRAM. IN THIS CASE, A MANUAL REVIEW OF THE SLIDE WILL BE PERFORMED, AND RBC MORPHOLOGY WILL BE NOTED ON THE REPORT. NE% (test code=NE) 52.3 % 42.0-75.0 LY% (test code=LY) 35.1 % 13.0-42.0 MO% (test code=MO) 9.9 % 4.0-14.0 EO% (test code=EO) 2.0 % 1.0-3.0 BA% (test code=BA) 0.2 % 1.0-3.0 IG% (test code=IG%) 0.5 % 0.0-0.4 [id number] (Ultra Sensitive)2017-10-11 00:22:00 Test Item Value Reference Range Comments TSH (test code=TSH) 1.12 mIU/L 0.47-4.68 ACETAMINOPHEN (Tyenol)2017-10-10 23:33:00 Test Item Value Reference Range Comments Acetaminophen (test code=ACET) <10 ug/ml 10-30 SALICYLATES (Aspirin)2017-10-10 23:33:00 Test Item Value Reference Range Comments Salicylate (test code=SALI) <1.0 mg/dl 0.0-30.0 Salicylates Reference Ranges : Therapeutic 15 - 30 mg/dl Toxicity >30 mg/dl Lethal >70 mg/dl ALCOHOL, [id number] 23:33:00 Test Item Value Reference Range Comments Alcohol % (test code=ALCPC) 0 % 0.00-0.00 Ethanol % 0.00 - 0.10 Sub-clinical 0.11 - 0.20 Emotional Instability 0.21 - 0.30 Confusion 0.31 - 0.40 Stupor 0.41 - 0.50 Coma >.50 Fatal HEPATIC FUNCTION PANEL (LIVER)2017-10-10 23:20:00 Test Item Value Reference Range Comments T Protein (test code=TP) 7.2 gm/dl 5.1-8.7 Albumin (test code=ALB) 4.0 gm/dl 3.5-4.6 AST (SGOT) (test code=AST) 29 U/L 11-36 ALT (SGPT) (test code=ALT) 37 U/L 11-40 Alkaline Phos (test code=ALKP) 64 U/L 47-114 Total Bilirubin (test code=TBIL) 0.6 mg/dl 0.2-1.2 Direct Bilirubin (test code=DBIL) 0.2 mg/dl 0.0-0.3 Indirect Bilirubin (test code=IBIL) 0.4 mg/dl 0.0-1.1 XR CHEST AP/PA 1 [id number] 12:42:44Exam: AP portable chest DATE OF EXAM: 10/10/2017 11:53AMINDICATION: stroke like sxsThe lungs are clear. The cardiomediastinal silhouette is within normal limits.The bony thoraxshows no significant abnormality.Impression:No active cardiopulmonary disease.This final report was electronically signed by Dr Saul Silveira MD 10/10/201712:36 PMDictated By: Mary SILVEIRAte: 10/10/2017 12:42CT HEAD W/O [id number] 12:06:56CT HEAD WITHOUT CONTRAST:DATE OF EXAM: 2016INDICATION: left sided weaknessNoncontrast CT head was performed. Total DLP 885 mGy-cm.FINDINGS:No intracranial hemorrhage, mass effect or midline shiftis identified. Theventricular system is normal in size and configuration. The basal cisterns arepatent.The visualized portions of the mastoids and orbits show no significantabnormality. Mucoperiosteal thickening is noted throughout the sinuses,particularly the maxillary and left sphenoid sinuses.IMPRESSION: Sinus disease as noted, otherwise unremarkable CT head without contrast.This final report was electronically signed by Dr Saul Silveira MD 10/10/201712:00 PMDictated By: Mary SILVEIRAte: 10/10/2017 12:[id number] 11:58:00 Test Item Value Reference Range Comments Glucose (test code=GLU) 96 mg/dl 75-110 BUN (test code=BUN) 11.0 mg/dl 6.0-17.0 Creatinine (test 0.6 mg/dl 0.4-1.2 code=CREA) Sodium (test code=NA) 138 mmol/l 137-145 Potassium (test code=K) 3.3 mmol/l 3.5-5.0 Chloride (test code=CL) 103 mmol/l 98-107 CO2 (test code=CO2) 26 mmol/l 22-30 Calcium (test code=CALC) 10.1 mg/dl 8.4-10.2 EGFR if >60 (test code=EGFRAA) mL/min/1.73m\\S\\2 EGFR if Non- >60 Estimated Glomerular [place] (test mL/min/1.73m\\S\\2 Filtration Rate (eGFR) code=EGFRNA) Reference Intervals Decision Points for 18 years and older and average body mass: >=60 Does not exclude kidney disease. 30 - 59 Suggests moderate chronic kidney disease and indicates the need for further investigation including assessment of proteinuria and cardiovascular factors. < 30 Usually indicates a need for referral for assessment and management of chronic kidney failure. PT AND [id number] 11:50:00 Test Item Value Reference Range Comments Protime (test code=PT) 10.5 seconds 9.0-11.8 INR (test code=INR) 1.0 0.9-1.1 INR results are intended ONLY to monitor Oral Anticoagulant therapy in stablized patients. The INR Therapeutic Range is 2.0 - 3.0 Patients with a mechanical heart, the INR Range is 2.5 - 3.5 CBC WITH AUTO [id number] 11:35:00 Test Item Value Reference Range Comments WBC (test code=WBC) 6.65 10\\S\\3/ul 4.80-10.80 RBC (test code=RBC) 4.66 10\\S\\6/ul 4.20-5.40 Hemoglobin (test code=HGB) 14.2 gm/dl 12.0-14.0 Hematocrit (test code=HCT) 41.8 % 37.0-47.0 MCV (test code=MCV) 89.7 fL 81.0-99.0 MCH (test code=MCH) 30.5 pg 27.0-31.0 MCHC (test code=MCHC) 34.0 gm/dl 33.0-37.0 RDW (test code=RDWVC) 13.2 % 11.5-14.5 Platelet (test code=PLT) 260 10\\S\\3/ul 130-400 MPV (test code=MPV) 8.7 fL 7.4-10.4 "NOT MEASURED" RESULTS ARE DISPLAYED WHEN THE INSTRUMENT HAS A SUPPRESSED OR UNREPORTABLE RESULT. THIS WILL MOST OFTEN HAPPEN WITH THE MPV WHEN THERE IS AN ABNORMAL PLATELET DISTRIBUTION DUE TO A CRITICAL LOW VALUE OR PLATELET CLUMPING. THE RDW MAY BE SUPPRESSED IF THERE ARE MULTIPLE PEAKS PRESENT ON THE RBC HISTOGRAM. IN THIS CASE, A MANUAL REVIEW OF THE SLIDE WILL BE PERFORMED, AND RBC MORPHOLOGY WILL BE NOTED ON THE REPORT. NE% (test code=NE) 49.0 % 42.0-75.0 LY% (test code=LY) 37.6 % 13.0-42.0 MO% (test code=MO) 10.7 % 4.0-14.0 EO% (test code=EO) 1.7 % 1.0-3.0 BA% (test code=BA) 0.5 % 1.0-3.0 IG% (test code=IG%) 0.5 % 0.0-0.4 AUTO DIFFPREGNANCY TEST, Urine [id number] 11:33:00 Test Item Value Reference Range Comments (Urine) (test code=PREGU) Negative If a specimen is collected by a nurse, then you MUST fill out the Collected and Collected By celis [id number] 11:36:00 Test Item Value Reference Range Comments Amphetamine (test code=AMPH) Negative Negative For diagnostic purposes only, positive results should always be assessedin conjunctionwith the patient's medical history,clinical examination and otherfindings.To fulfill legal requirements, a more specific alternate chemical methodmust be used inorder to obtain a Confirmed analytical result. GC/MS is the preferred confirmatory method. Barbiturates (test code=ZULEIKA) Negative Negative Benzodiazepine (test Negative Negative code=JOSUE) Cocaine (test code=COCA) Negative Negative Methadone (test code=MTHD) Negative Negative Opiates (test code=OPIA) Negative Negative PCP (test code=PCP) Negative Negative Propoxyphene (test Negative Negative code=PROPOX) THC (test code=THC) POSITIVE Negative BHCG, Serum, [id number] 11:32:00 Test Item Value Reference Range Comments Preg Qual [Se] (test code=BSHCG) Negative Negative Comprehensive Metabolic [id number] 11:32:00 Test Item Value Reference Range Comments Sodium (test code=NA) 136 mmol/L 135-145 Potassium (test code=K) 3.7 mmol/L 3.5-5.1 Chloride (test code=CL) 105 mmol/L 98-105 Carbon Dioxide (test 18 mmol/L 22-29 code=CO2) Glucose (test code=GLU) 100 mg/dL 70-115 Blood Urea Nitrogen 20 mg/dL 6-20 (test code=BUN) Creatinine (test 0.9 mg/dL 0.5-0.9 code=CREAT) Calcium (test code=CA) 9.5 mg/dL 8.3-10.5 Prot Total (test 7.0 g/dL 6.4-8.3 code=TP) Albumin (test code=ALB) 4.4 g/dL 3.5-5.2 A/G Ratio (test 1.7 Ratio code=AGRATIO) Globulin (test 2.6 2.9-3.1 code=GLOB) Bili Total (test 0.3 mg/dL 0.1-0.9 code=TBIL) Alk Phos (test 72 U/L 35-104 code=APHOS) AST (test code=AST) 18 U/L 1-32 ALT (test code=ALT) 23 U/L 1-33 BUN/Creatinine Ratio 22.2 (test code=BCRATIO) Anion Gap (test 13 mmol/L 7-16 code=AGAP) Estimated GFR (test >60 mL/min/1.73m2 eGFR (estimated Glomerular code=GFR) Filtration Rate) is an estimated value,calculated from the patient's serum creatinine using the MDRD equation.It is NOT the patient's actual GFR. The eGFR provides a more clinicallyuseful measure of kidney disease than serum creatinine alone.This calculation takes sex and race into account, if the informationis provided. If the race is not provided, and the patient isAfrican-Solomon Islander, multiply by 1.212. If sex is not provided, and thepatient is female, multiply by 0.742. Results for patients <18 years ofage have not been validated by the MDRD study and should be interpretedwith caution.eGFR Result Interpretation:eGFR > or=60 is in the Normal RangeeGFR < 60 may mean kidney diseaseeGFR < 15 may mean kidney failureRanges recommended by the National Kidney Foundation,http://nkdep.nih .gov Urinalysis [id number] 11:31:00 Test Item Value Reference Range Comments Color (test code=COLOR) Yellow Yellow,Straw,Pl yellow Clarity (test code=CLAR) Clear Clear Specific [place] (test code=SPGR) 1.026 1.001-1.035 pH (test code=PH) 5.0 5.0-9.0 Ketone (test code=KET) 5 mg/dL Negative Glucose (test code=GLUCUR) Negative mg/dL Negative Protein (test code=PROT) Negative mg/dL Negative Bilirubin (test code=BILI) Negative mg/dL Negative Occult Blood (test code=UDOB) Negative Negative Urobilinogen (test code=UROB) 0.2 mg/dL 0.2-1.0 Nitrite (test code=NIT) Negative Negative Leuk Esterase (test code=LEUK) Small Negative Micros Exam (test code=MEXAM) Indicated Epithelial Cells (test code=EPI) 50+ /LPF 0-30 WBC, Urine (test code=UWBC) 3-5 /HPF 0-5 RBC, Urine (test code=URBC) 0-3 /HPF 0-5 Bacteria (test code=BACT) Few /HPF CBC with [id number] 11:08:00 Test Item Value Reference Range Comments WBC (test code=WBC) 8.1 K/cumm 4.4-10.5 RBC (test code=RBC) 4.71 M/cumm 3.75-5.20 Hemoglobin (test code=HGB) 14.4 gm/dL 12.2-14.8 Hematocrit (test code=HCT) 43.2 % 36.5-44.4 MCV (test code=MCV) 91.8 fL 80-100 MCH (test code=MCH) 30.5 pg 27.0-32.5 MCHC (test code=MCHC) 33.2 g/dL 32.0-37.5 RDW (test code=RDW) 15.7 % 11.5-14.5 Platelet Count (test code=PLTCT) 236 K/cumm 140-440 MPV (test code=MPV) 8.2 fL Diff Method (test code=DIFFM) Auto Neutrophil (test code=NEUT) 67.0 % 36-70 Lymphocyte (test code=LYMPH) 26.6 % 12-44 Monocyte (test code=MONO) 4.6 % 0-11 Eosinophil (test code=EOS) 1.5 % 0-7 Basophil (test code=BASO) 0.2 % 0-2 Neutro Abs (test code=ANEUT) 5.4 K/cumm 1.6-7.4 Lymph Abs (test code=ALYMPH) 2.2 K/cumm 0.5-4.6 [place] Abs (test code=AMONO) 0.4 K/cumm 0.0-1.2 Eos Abs (test code=AEOS) 0.12 K/cumm 0.00-0.74 Baso Abs (test code=ABASO) 0.0 K/cumm 0.00-0.21
--- OUTSIDE RECORDS SUMMARY | 2019-07-23 12:59 | XMS REPORT | Continuity of Care Document ---
:1985 Author Organization [facility] Care Team Providers Name Role Phone DANIELA ZAYAS Admitting Physician DANIELA ZAYAS Attending Physician Hospital Admission Diagnosis Code Admission Diagnosis Date Seizure Social History Element Code Description Smoking Start Date End Date Description Status Code System Smoking Status [id number] Current every day SNOMED-CT smoker Problems Code Code System Problem Name Start Date End Date Status 002684282 SNOMED-CT Feeling suicidal 10/11/2017 Active 523973961 SNOMED-CT Major depressive 10/11/2017 Active disorder Breakthrough Seizure 10/10/2017 Active 460825397 SNOMED-CT Left hemiparesis 10/10/2017 Active 32081070 SNOMED-CT 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 92264137 SNOMED-CT Seizure 10/10/2017 Active 73436659 SNOMED-CT Bipolar disorder Unknown Active 561106883 SNOMED-CT Asthma Unknown Active 39383042 SNOMED-CT Depressive disorder Unknown Active 91047807 SNOMED-CT Posttraumatic stress Unknown Active disorder 24712645 SNOMED-CT Anxiety Unknown Active 18668641 SNOMED-CT Viral hepatitis C Unknown Active 40242766 SNOMED-CT Seizure Unknown Active Medications RxNorm Medication Dose Route Instructions Indications Start End Status Date Date 296157 120 ACTUAT Inhalation inhaled Active Fluticasone propionate 0.22 MG/ACTUAT Metered Dose Inhaler 435 Albuterol Inhalation inhaled Active (administer with spacer;) 32465 aripiprazole Oral orally Active 5553 Hydroxyzine Oral orally Active 963145 Levetiracetam 1500 Oral orally 2 Active milligram times per day 11865 oxcarbazepine Oral orally Active 8629 Prazosin Oral orally Active 18408 quetiapine Oral orally Active Allergies Code Code Allergy Type Reaction Severity Start End Status System Substance Date Date RXNorm IV Dye, Drug Unknown Active Iodine allergy Containing Contrast Media 61913 RXNorm Sulfa(Sulfona Drug Unknown Active mide allergy Antibiotics) Results Laboratory Results Order: ACETAMINOPHEN BLOOD LOINC Test Result Flag Range Unit Date <10 L 10-30 ug/ml 10/10/2017 1Acetaminoph 23:01 en Performing Lab Footnotes:[address] [place], [place] [id number] [place] [address] AMADO COPELAND: DIRECTOR ZEUS REYES _ Order: ALCOHOL ETHANOL LEVEL SERUM LOINC Test Result Flag Range Unit Date 0 0.00-0.00 % 10/10/2017 1Alcohol % 23:01 Note: Ethanol % 0.00 - 0.10 Sub-clinical 0.11 - 0.20 Emotional Instability 0.21 - 0.30 Confusion 0.31 - 0.40 Stupor 0.41 - 0.50 Coma >.50 Fatal Performing Lab Footnotes:[address] [place], [place] [id number] [place] [address] AMADO COPELAND: DIRECTOR ZUES REYES _ Order: LIVER FUNCTION PANEL LOINC Test Result Flag Range Unit Date 1T 7.2 5.1-8.7 gm/dl 10/10/2017 Protein 23:01 4 3.5-4.6 gm/dl 10/10/2017 1Albumin 23:01 1AST 29 11-36 U/L 10/10/2017 (SGOT) 23:01 1ALT 37 11-40 U/L 10/10/2017 (SGPT) 23:01 64 47-114 U/L 10/10/2017 1Alkaline Phos 23:01 1Total 0.6 0.2-1.2 mg/dl 10/10/2017 Bilirubin 23:01 0.2 0.0-0.3 mg/dl 10/10/2017 1Direct 23:01 Bilirubin 0.4 0.0-1.1 mg/dl 10/10/2017 1Indirect 23:01 Bilirubin Performing Lab Footnotes:[address] [place], [place] [id number] [place] [address] AMADO COPELAND: DIRECTOR ZEUS REYES _ Order: SALICYLATES ASPIRIN LOINC Test Result Flag Range Unit Date <1.0 0.0-30.0 mg/dl 10/10/2017 1Salicylate 23:01 Note: Salicylates Reference Ranges: Therapeutic 15 - 30 mg/dl Toxicity >30 mg/dl Lethal >70 mg/dl Performing Lab Footnotes:[address] [place], [place] [id number] [place] [address] AMADO COPELAND: DIRECTOR ZEUS REYES _ Order: TSH ULTRA SENSITIVE LOINC Test Result Flag Range Unit Date 1.12 0.47-4.68 mIU/L 10/10/2017 1TSH 23:01 Performing Lab Footnotes:[address] [place], [place] [id number] [place] [address] [place] -MD: DIRECTOR ZEUS REYES _ Vital Signs Vitals Value Date Body Temperature 98.7 F 10/11/2017 Respiratory Rate 20 10/11/2017 O2% BldC Oximetry 96 10/11/2017 BP Systolic 119 mmHg 10/11/2017 BP Diastolic 82 mmHg 10/11/2017 Height 69 in 10/10/2017 Weight Measured 235 lbs 10/10/2017 BSA (Body Surface Area) 2.75857 10/10/2017 BMI (Body Mass Index) 34.8 10/10/2017 Plan of Care No data in the system Procedures Code Code System Procedure Name Target Site Date of Procedure 42239968 SNOMED Colonoscopy Unknown Encounters Date Code Diagnosis Status (ICD10) - T92321 EPILEPSY UNS NOT INTRACT W/O SE Active Immunizations No data in the system Functional Status Code Functional/Cognitive Code System Date Status Condition 304464714 Mentally alert SNOMED-CT 10/10/2017 Active 720251158 Ability to perform SNOMED-CT 10/10/2017 Active activities of everyday life (observable entity) Hospital Discharge Instructions Discharge Instructions 2Discharge DiagnosisseizuresImportant InformationConsult your physician or return to the Emergency Department immediately if worse, if not better as expected, or if any problems arise.Please understand that you have received care only on an emergency basis. If your condition does notimprove , you should call your personal physician for follow-up care. If you do not have a physician,you may call the referred physician listed.If you have questions about your care or these discharge instructions, you may call the Emergency Department. Please take your discharge paperwork with you to any follow-up appointments.Follow-Up With:Primary Care PhysicianActivity LevelAs tolerated, unrestrictedPatient TeachingPatient education provided
--- OUTSIDE RECORDS SUMMARY | 2019-07-23 12:59 | XMS REPORT | Continuity of Care Document ---
:1985 Author Organization [facility] Care Team Providers Name Role Phone JEANNINE FLORES Admitting Physician JEANNINE FLORES Attending Physician Hospital Admission Diagnosis Code Admission Diagnosis Date [id number] Epilepsy, not refractory Social History Element Code Description Smoking Start Date End Date Description Status Code System Smoking Status [id number] Heavy tobacco SNOMED-CT smoker Problems Code Code System Problem Name Start Date End Date Status 836515417 SNOMED-CT Feeling suicidal 10/11/2017 Active 457855727 SNOMED-CT Major depressive 10/11/2017 Active disorder Breakthrough Seizure 10/10/2017 Active 710347918 SNOMED-CT Left hemiparesis 10/10/2017 Active 51020832 SNOMED-CT 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 86534136 SNOMED-CT Seizure 10/10/2017 Active 13542204 SNOMED-CT Bipolar disorder Unknown Active 256914856 SNOMED-CT Asthma Unknown Active 45861878 SNOMED-CT Depressive disorder Unknown Active 64248104 SNOMED-CT Posttraumatic stress Unknown Active disorder 25225924 SNOMED-CT Anxiety Unknown Active 91259608 SNOMED-CT Viral hepatitis C Unknown Active 83986289 SNOMED-CT Seizure Unknown Active Medications RxNorm Medication Dose Route Instructions Indications Start End Status Date Date 962092 120 ACTUAT Inhalation inhaled Active Fluticasone propionate 0.22 MG/ACTUAT Metered Dose Inhaler 435 Albuterol Inhalation inhaled Active (administer with spacer;) 47791 aripiprazole Oral orally Active 5553 Hydroxyzine Oral orally Active 283732 Levetiracetam 1500 Oral orally 2 Active milligram times per day 40792 oxcarbazepine Oral orally Active 8629 Prazosin Oral orally Active 69547 quetiapine Oral orally Active Allergies Code Code Allergy Type Reaction Severity Start End Status System Substance Date Date RXNorm IV Dye, Drug Unknown Active Iodine allergy Containing Contrast Media 93053 RXNorm Sulfa(Sulfona Drug Unknown Active mide allergy Antibiotics) Results Laboratory Results Order: BMP BASIC METABOLIC PANEL LOINC Test Result Flag Range Unit Date 96 75-110 mg/dl 10/10/2017 1Glucose 11:31 1BUN 11 6.0-17.0 mg/dl 10/10/2017 11:31 0.6 0.4-1.2 mg/dl 10/10/2017 1Creatinine 11:31 138 137-145 mmol/l 10/10/2017 1Sodium 11:31 3.3 L 3.5-5.0 mmol/l 10/10/2017 1Potassium 11:31 103 98-107 mmol/l 10/10/2017 1Chloride 11:31 1CO2 26 22-30 mmol/l 10/10/2017 11:31 10.1 8.4-10.2 mg/dl 10/10/2017 1Calcium 11:31 1EGFR >60 mL/min/1.73 10/10/2017 if m^2 11:31 Pakistani 1EGFR >60 mL/min/1.73 10/10/2017 if Non- m^2 11:31 Pakistani Note: Estimated Glomerular Filtration Rate (eGFR) Reference Intervals Decision Points for 18 years and older and average body mass: >=60 Does not exclude kidney disease. 30 - 59 Suggests moderate chronic kidney disease and indicates the need for further investigation including assessment of proteinuria and cardiovascular factors. < 30 Usually indicates a need for referral for assessment and management of chronic kidney failure. Performing Lab Footnotes:[address] [place] [address] - [id number] - [facility] [place] [address] AMADO -: DIRECTOR ZEUS REYES _ Order: CBC PLATELET AUTO DIFF LOINC Test Result Flag Range Unit Date 33025-2 6.65 4.80-10.80 10^3/ul 10/10/2017 1Leukocytes^^correc 11:31 anne for nucleated erythrocytes:NCnc:P t:Bld:Qn:Automated count 789-8 4.66 4.20-5.40 10^6/ul 10/10/2017 1Erythrocytes:NCnc: 11:31 Pt:Bld:Qn:Automated count 718-7 14.2 H 12.0-14.0 gm/dl 10/10/2017 1Hemoglobin:MCnc:Pt 11:31 :Bld:Qn 4544-3 41.8 37.0-47.0 % 10/10/2017 1Hematocrit:VFr:Pt: 11:31 Bld:Qn:Automated count 787-2 89.7 81.0-99.0 fL 10/10/2017 1Erythrocyte mean 11:31 corpuscular volume:EntVol:Pt:RB C:Qn:Automated count 785-6 30.5 27.0-31.0 pg 10/10/2017 1Erythrocyte mean 11:31 corpuscular hemoglobin:EntMass: Pt:RBC:Qn:Automated count 786-4 34 33.0-37.0 gm/dl 10/10/2017 1Erythrocyte mean 11:31 corpuscular hemoglobin concentration:MCnc: Pt:RBC:Qn:Automated count 788-0 13.2 11.5-14.5 % 10/10/2017 1Erythrocyte 11:31 distribution width:Ratio:Pt:RBC: Qn:Automated count 777-3 260 130-400 10^3/ul 10/10/2017 1Platelets:NCnc:Pt: 11:31 Bld:Qn:Automated count 16234-7 1Platelet 8.7 A 7.4-10.4 fL 10/10/2017 mean 11:31 volume:EntVol:Pt:Bl d:Qn:Automated count Note: 'NOT MEASURED' RESULTS ARE DISPLAYED WHEN THE INSTRUMENT HAS [...] MORPHOLOGY WILL BE NOTED ON THE REPORT. 770-8 1Neutrophils/100 49 42.0-75.0 % 10/10/2017 leukocytes:NFr:Pt:Bld:Qn:Automated 11:31 count 736-9 1Lymphocytes/100 37.6 13.0-42.0 % 10/10/2017 leukocytes:NFr:Pt:Bld:Qn:Automated 11:31 count 5905-5 1Monocytes/100 10.7 4.0-14.0 % 10/10/2017 leukocytes:NFr:Pt:Bld:Qn:Automated 11:31 count 713-8 1Eosinophils/100 1.7 1.0-3.0 % 10/10/2017 leukocytes:NFr:Pt:Bld:Qn:Automated 11:31 count 706-2 1Basophils/100 0.5 L 1.0-3.0 % 10/10/2017 leukocytes:NFr:Pt:Bld:Qn:Automated 11:31 count 1IG% 0.5 H 0.0-0.4 % 10/10/2017 11:31 Performing Lab Footnotes:[address] [place] [id number] -MD: DIRECTOR ZEUS REYES _ Order: PROTIME PT INR LOINC Test Result Flag Range Unit Date 10.5 9.0-11.8 seconds 10/10/2017 1Protime 11:31 6301-6 1 0.9-1.1 10/10/2017 1Coagulation 11:31 tissue factor induced.INR:R elTime:Pt:PPP :Qn:Coag Note: INR results are intended ONLY to monitor Oral Anticoagulant therapy in stablized patients. The INR Therapeutic Range is 2.0 - 3.0 Patients with a mechanical heart, the INR Range is 2.5 - 3.5 Performing Lab Footnotes:[address] [place] [address] [id number] - [address] [place] [address] AMADO COPELAND: DIRECTOR ZEUS REYES _ Order: TEST URINE LOINC Test Result Flag Range Unit Date Negative 10/10/2017 1Pregnancy 11:25 (Urine) Performing Lab Footnotes:[address] [place] [address] [id number] - [address] [place] [address] AMADO COPELAND: DIRECTOR ZEUS REYES _ Radiology Results Order: [id number] CT HEAD W/O CONTRASTExam Completion Date:10/10/2017 10:55CT HEAD WITHOUT CONTRAST:DATE OF EXAM: 2016INDICATION: left sided weaknessNoncontrast CT head was performed. Total DLP 885 mGy-cm.FINDINGS:No intracranial hemorrhage, mass effect or midline shiftis identified. Theventricular system is normal in size and configuration. The basal cisterns arepatent. The visualized portions of the mastoids and orbits show no significantabnormality. Mucoperiostealthickening is noted throughout the sinuses,particularly the maxillary and left sphenoid sinuses.IMPRESSION: Sinus disease as noted, otherwise unremarkable CT head without contrast.This final report was electronically signed by Dr Ephraim Silveira MD 10/10/201712:00 PMDictated By: Mary SILVEIRAte: 10/10/2017 12:06Order: [id number] XR CHEST AP /PA 1 VIEWExam Completion Date:10/10/2017 10:55Exam: AP portable chest DATE OF EXAM: 10/10/2017 11:53AMINDICATION: stroke like sxsThe lungs are clear. The cardiomediastinal silhouette is within normal limits.The bony thoraxshows no significant abnormality.Impression:No active cardiopulmonary disease.This final report was electronically signed by Dr Ephraim Silveira MD 10/10/201712:36 PMDictated By: EPHRAIM SILVEIRADate: 2016 12:42 Vital Signs Vitals Value Date O2% BldC Oximetry 95 10/10/2017 BP Systolic 128 mmHg 10/10/2017 BP Diastolic 88 mmHg 10/10/2017 Height 69 in 10/10/2017 Weight Measured 230 lbs 10/10/2017 BSA (Body Surface Area) 2.90652 10/10/2017 BMI (Body Mass Index) 34 10/10/2017 Body Temperature 98.2 F 10/10/2017 Respiratory Rate 18 10/10/2017 Plan of Care No data in the system Procedures Code Code System Procedure Name Target Site Date of Procedure XR CHEST 10/10/2017 12:42 AP/PA [address] HEAD W/O 10/10/2017 12:06 CONTRAST Encounters Date Code Diagnosis Status (ICD10) - I80495 EPILEPSY UNS NOT INTRACT W/O SE Active Immunizations No data in the system Functional Status Code Functional/Cognitive Code System Date Status Condition 994794316 Orientated SNOMED-CT 10/10/2017 Active 984896850 Orientated SNOMED-CT 10/10/2017 Active 668429353 Orientated SNOMED-CT 10/10/2017 Active 427451723 Orientated SNOMED-CT 10/10/2017 Active 249664550 Mentally alert SNOMED-CT 10/10/2017 Active 191226214 Ability to perform SNOMED-CT 10/10/2017 Active activities of everyday life (observable entity) 107700776 Oriented to person SNOMED-CT 10/10/2017 Active Hospital Discharge Instructions Discharge Instructions 2Discharge Diagnosisrecurrent seizures in adultsImportant InformationConsult your physician or return to the Emergency Department immediately if worse, if not better as expected, or if any problems arise.Follow Up CareYesImportant InformationPlease understand that you have received care only on an emergency basis. If your condition does notimprove, you should call your personal physician for follow-up care. If you do not have a physician,you may call the referred physician listed.If you have questions about your care or these discharge instructions, you may call the Emergency Department. Please take your discharge paperwork with you to any follow-up appointments.Follow-Up With:Primary Care PhysicianActivity LevelAs tolerated, unrestrictedDietRegularPrescriptions Given Via:Printed and given to patient/ caregiver.Patient TeachingPatient education provided
--- OUTSIDE RECORDS SUMMARY | 2019-07-23 13:00 | XMS REPORT | Continuity of Care Document ---
:1985 Author Organization [facility] Care Team Providers Name Role Phone JEANNINE FLORES Admitting Physician JEANNINE FLORES Attending Physician Hospital Admission Diagnosis Code Admission Diagnosis Date 936841500 Epilepsy, not refractory Social History Element Code Description Smoking Start Date End Date Description Status Code System Smoking Status 303601245 Never smoker SNOMED-CT Problems Code Code System Problem Name Start Date End Date Status 167535235 SNOMED-CT Feeling suicidal 10/11/2017 Active 122766264 SNOMED-CT Major depressive 10/11/2017 Active disorder Breakthrough Seizure 10/10/2017 Active 505214316 SNOMED-CT Left hemiparesis 10/10/2017 Active 24305749 SNOMED-CT 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 21214106 SNOMED-CT Seizure 10/10/2017 Active 01446226 SNOMED-CT Seizure 2017 Active 70126778 SNOMED-CT Bipolar disorder Unknown Active 538727700 SNOMED-CT Asthma Unknown Active 18321024 SNOMED-CT Depressive disorder Unknown Active 15173076 SNOMED-CT Posttraumatic stress Unknown Active disorder 43675567 SNOMED-CT Anxiety Unknown Active 86908726 SNOMED-CT Viral hepatitis C Unknown Active 69687114 SNOMED-CT Seizure Unknown Active Medications RxNorm Medication Dose Route Instructions Indications Start End Status Date Date 054464 120 ACTUAT Inhalation inhaled Active Fluticasone propionate 0.22 MG/ACTUAT Metered Dose Inhaler 435 Albuterol Inhalation inhaled Active (administer with spacer;) 78712 aripiprazole Oral orally Active 5553 Hydroxyzine Oral orally Active 139472 Levetiracetam 1500 Oral orally 2 Active milligram times per day 02620 oxcarbazepine Oral orally Active 8629 Prazosin Oral orally Active 07569 quetiapine Oral orally Active Allergies Code Code Allergy Type Reaction Severity Start End Status System Substance Date Date RXNorm IV Dye, Drug Unknown Active Iodine allergy Containing Contrast Media 99521 RXNorm Sulfa(Sulfona Drug Unknown Active mide allergy Antibiotics) 680643 RXNorm peanut Drug Unknown Active allergy RXNorm MISC-FOOD Food Unknown Active allergy Results No data in the system Vital Signs Vitals Value Date Body Temperature 98.3 F 10/16/2017 Respiratory Rate 12 10/16/2017 O2% BldC Oximetry 97 10/16/2017 BP Systolic 121 mmHg 10/16/2017 BP Diastolic 87 mmHg 10/16/2017 Height 69 in 10/16/2017 Weight Measured 231.99 lbs 10/16/2017 BSA (Body Surface Area) 2.19981 10/16/2017 BMI (Body Mass Index) 34.3 10/16/2017 Plan of Care No data in the system Procedures Code Code System Procedure Name Target Site Date of Procedure 67618202 SNOMED Colonoscopy Unknown Encounters Date Code Diagnosis Status (ICD10) - W55093 EPILEPSY UNS NOT INTRACT W/O SE Active Immunizations No data in the system Functional Status Code Functional/Cognitive Code System Date Status Condition 325406078 Orientated SNOMED-CT 10/16/2017 Active 537537028 Mentally alert SNOMED-CT 10/16/2017 Active 910165568 Ability to perform SNOMED-CT 10/16/2017 Active activities of everyday life (observable entity) Hospital Discharge Instructions Discharge Instructions 2Discharge Diagnosisrecurrent seizuresImportant InformationConsult your physician or return to the [...] paperwork with you to any follow-up appointments.Follow-Up With: Primary Care PhysicianMedicationWhile you were in the Emergency Department, you were given medication that may cause sedation. You may feel sleepy or light headed. Do not drive for 4-6 hours after discharge.DO NOT drink alcohol, drive or operate machinery if taking medicines which cause drowsiness or make you feel light-headed.Prescriptions Given Via:Printed and given to patient/ caregiver.Patient TeachingPatient education provided
--- OUTSIDE RECORDS SUMMARY | 2019-07-23 13:00 | XMS REPORT | Continuity of Care Document ---
:1985 Author Organization [facility] Care Team Providers Name Role Phone LUIS FELIPE LAKHANI Admitting Physician Unavailable LUIS FELIPE LAKHANI Attending Physician Unavailable Hospital Admission Diagnosis Code Admission Diagnosis Date [id number] Seizure Social History Element Code Description Smoking Start Date End Date Description Status Code System Smoking Status [id number] Never smoker SNOMED-CT Problems Code Code System Problem Name Start Date End Date Status 277209535 SNOMED-CT Feeling suicidal 10/11/2017 Active 056952736 SNOMED-CT Major depressive 10/11/2017 Active disorder Breakthrough Seizure 10/10/2017 Active 456694164 SNOMED-CT Left hemiparesis 10/10/2017 Active 08462463 SNOMED-CT 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 36218304 SNOMED-CT Seizure 10/10/2017 Active 51036004 SNOMED-CT Seizure 2017 Active 85084810 SNOMED-CT Bipolar disorder Unknown Active 646648415 SNOMED-CT Asthma Unknown Active 94144215 SNOMED-CT Depressive disorder Unknown Active 44539313 SNOMED-CT Posttraumatic stress Unknown Active disorder 51621082 SNOMED-CT Anxiety Unknown Active 78418568 SNOMED-CT Viral hepatitis C Unknown Active 08989905 SNOMED-CT Seizure Unknown Active Medications RxNorm Medication Dose Route Instructions Indications Start End Status Date Date 245198 120 ACTUAT Inhalation inhaled Active Fluticasone propionate 0.22 MG/ACTUAT Metered Dose Inhaler 435 Albuterol Inhalation inhaled Active (administer with spacer;) 59179 aripiprazole Oral orally Active 5553 Hydroxyzine Oral orally Active 376312 Levetiracetam 1500 Oral orally 2 Active milligram times per day 25842 oxcarbazepine Oral orally Active 8629 Prazosin Oral orally Active 05978 quetiapine Oral orally Active Allergies Code Code Allergy Type Reaction Severity Start End Status System Substance Date Date 79832 RXNorm IV Dye, Drug Unknown Active Iodine allergy Containing Contrast Media 26046 RXNorm Sulfa(Sulfona Drug Unknown Active mide allergy Antibiotics) 553311 RXNorm peanut Drug Unknown Active allergy RXNorm MISC-FOOD Food Unknown Active allergy Results Laboratory Results Order: LACTIC ACID IH LOINC Test Result Flag Range Unit Date 1.1 0.7-2.0 mmol/l 10/15/2017 1LACTATE 11:15 Performing Lab Footnotes:[address] [place] [address] - [id number] - [address] [facility] [address] [place] [address] [facility] - MD: DIRECTOR ZEUS REYES__ ____ Order: CBC PLATELET AUTO DIFF LOINC Test Result Flag Range Unit Date 75677-2 4.44 L 4.80-10.80 10^3/ul 10/15/2017 1Leukocytes^^correc 11:10 anne for nucleated erythrocytes:NCnc:P t:Bld:Qn:Automated count 789-8 4.28 4.20-5.40 10^6/ul 10/15/2017 1Erythrocytes:NCnc: 11:10 Pt:Bld:Qn:Automated count 718-7 13.1 12.0-14.0 gm/dl 10/15/2017 1Hemoglobin:MCnc:Pt 11:10 :Bld:Qn 4544-3 39.4 37.0-47.0 % 10/15/2017 1Hematocrit:VFr:Pt: 11:10 Bld:Qn:Automated count 787-2 92.1 81.0-99.0 fL 10/15/2017 1Erythrocyte mean 11:10 corpuscular volume:EntVol:Pt:RB C:Qn:Automated count 785-6 30.6 27.0-31.0 pg 10/15/2017 1Erythrocyte mean 11:10 corpuscular hemoglobin:EntMass: Pt:RBC:Qn:Automated count 786-4 33.2 33.0-37.0 gm/dl 10/15/2017 1Erythrocyte mean 11:10 corpuscular hemoglobin concentration:MCnc: Pt:RBC:Qn:Automated count 788-0 13.3 11.5-14.5 % 10/15/2017 1Erythrocyte 11:10 distribution width:Ratio:Pt:RBC: Qn:Automated count 777-3 217 130-400 10^3/ul 10/15/2017 1Platelets:NCnc:Pt: 11:10 Bld:Qn:Automated count 45210-5 1Platelet 9.0 A 7.4-10.4 fL 10/15/2017 mean 11:10 volume:EntVol:Pt:Bl d:Qn:Automated count Note: 'NOT MEASURED' RESULTS [...] BE NOTED ON THE REPORT. 770-8 1Neutrophils/100 52.3 42.0-75.0 % 10/15/2017 leukocytes:NFr:Pt:Bld:Qn:Automated 11:10 count 736-9 1Lymphocytes/100 35.1 13.0-42.0 % 10/15/2017 leukocytes:NFr:Pt:Bld:Qn:Automated 11:10 count 5905-5 1Monocytes/100 9.9 4.0-14.0 % 10/15/2017 leukocytes:NFr:Pt:Bld:Qn:Automated 11:10 count 713-8 1Eosinophils/100 2 1.0-3.0 % 10/15/2017 leukocytes:NFr:Pt:Bld:Qn:Automated 11:10 count 706-2 1Basophils/100 0.2 L 1.0-3.0 % 10/15/2017 leukocytes:NFr:Pt:Bld:Qn:Automated 11:10 count 1IG% 0.5 H 0.0-0.4 % 10/15/2017 11:10 Performing Lab Footnotes:[address] [place], [place] [address]FELIPE - [id number] - [address] [facility] [address] [facility] [place] [address] [facility] - : DIRECTOR ZEUS REYES__ ____ Order: CMP COMPREHENSIVE METABOLIC PANEL LOINC Test Result Flag Range Unit Date 2350-7 92 75-110 mg/dl 10/15/2017 1Glucose:MCnc:Pt 11:10 :Urine:Qn 3094-0 1Urea 7 6.0-17.0 mg/dl 10/15/2017 nitrogen:MCnc:Pt 11:10 :Ser/Plas:Qn 2160-0 0.7 0.4-1.2 mg/dl 10/15/2017 1Creatinine:MCnc 11:10 :Pt:Ser/Plas:Qn 2951-2 143 137-145 mmol/l 10/15/2017 1Sodium:SCnc:Pt: 11:10 Ser/Plas:Qn 2823-3 3.7 3.5-5.0 mmol/l 10/15/2017 1Potassium:SCnc: 11:10 Pt:Ser/Plas:Qn 2075-0 106 98-107 mmol/l 10/15/2017 1Chloride:SCnc:P 11:10 t:Ser/Plas:Qn 8-9 24 22-30 mmol/l 10/15/2017 1Carbon 11:10 dioxide:SCnc:Pt: Ser/Plas:Qn 52855-6 9.7 8.4-10.2 mg/dl 10/15/2017 1Calcium:MCnc:Pt 11:10 :Ser/Plas:Qn 2885-2 7.1 5.1-8.7 gm/dl 10/15/2017 1Protein:MCnc:Pt 11:10 :Ser/Plas:Qn 1751-7 4.4 3.5-4.6 gm/dl 10/15/2017 1Albumin:MCnc:Pt 11:10 :Ser/Plas:Qn 1A/G 1.6 1.1-2.2 % 10/15/2017 Ratio 11:10 1920-8 23 11-36 U/L 10/15/2017 1Aspartate 11:10 aminotransferase :CCnc:Pt:Ser/Abimbola s:Qn 1742-6 32 11-40 U/L 10/15/2017 1Alanine 11:10 aminotransferase :CCnc:Pt:Ser/Abimbola s:Qn 6768-6 56 47-114 U/L 10/15/2017 1Alkaline 11:10 phosphatase:CCnc :Pt:Ser/Plas:Qn 1975-2 0.4 0.2-1.2 mg/dl 10/15/2017 1Bilirubin:MCnc: 11:10 Pt:Ser/Plas:Qn 2.7 2.3-3.5 gm/dl 10/15/2017 1Globulin 11:10 9.4 8.4-10.2 mg/dl 10/15/2017 1Calcium, 11:10 Corrected Note: Various formulas exist for corrected serum calcium results, each yielding different values. This corrected result was based on the formula: Corrected Calcium=SerumCalcium + [0.8 * ( 4 - SerumAlbumin)] 1EGFR >60 mL/min/1.73m^2 10/15/2017 11:10 if 1EGFR >60 mL/min/1.73m^2 10/15/2017 11:10 if Non- Note: Estimated Glomerular Filtration Rate (eGFR) Reference [...] management of chronic kidney failure. Performing Lab Footnotes:[address] [place] [address] - [id number] - [address] [facility] [address] [facility] [place] [address] AMADO - : DIRECTOR ZEUS REYES__ ____ Order: TEST SERUM QUAL LOINC Test Result Flag Range Unit Date Negative 10/15/2017 1Pregnancy 11:10 (Serum) Performing Lab Footnotes:[address] [place] [address] - [id number] - [address] [facility] [address] [place] [address] [facility] - MD: DIRECTOR ZEUS REYES__ ____ Order: UA URINALYSIS WITH MICROSCOPY LOINC Test Result Flag Range Unit Date 5778-6 YELLOW 10/15/2017 1Color:Type: 11:10 Pt:Urine:Nom 5767-9 CLOUDY 10/15/2017 1Appearance: 11:10 Aper:Pt:Urin e:Nom 2349-9 NEGATIVE NEGATIVE 10/15/2017 1Glucose:ACn 11:10 c:Pt:Urine:O rd 5770-3 NEGATIVE NEGATIVE 10/15/2017 1Bilirubin:A 11:10 Cnc:Pt:Urine :Ord:Test strip 2514-8 15 A NEGATIVE 10/15/2017 1Ketones:ACn 11:10 c:Pt:Urine:O rd:Test strip 5811-5 1.015 A 1.005-1.030 10/15/2017 1Specific 11:10 gravity:Rden :Pt:Urine:Qn :Test strip 5794-3 LARGE A NEGATIVE 10/15/2017 1Hemoglobin: 11:10 ACnc:Pt:Urin e:Ord:Test strip 5803-2 6.5 A 4.5-8.0 10/15/2017 1pH:LsCnc:Pt 11:10 :Urine:Qn:Te st strip 07341-9 TRACE A NEGATIVE 10/15/2017 1Protein:ACn 11:10 c:Pt:Urine:O rd:Test strip 5818-0 0.2 0.2 10/15/2017 1Urobilinoge 11:10 n:ACnc:Pt:Ur ine:Ord:Test strip 5802-4 NEGATIVE NEGATIVE 10/15/2017 1Nitrite:ACn 11:10 c:Pt:Urine:O rd:Test strip 5799-2 NEGATIVE NEGATIVE 10/15/2017 1Leukocyte 11:10 esterase:ACn c:Pt:Urine:O rd:Test strip 5821-4 5-10 A 0-5 10/15/2017 1Leukocytes: 11:10 Naric:Pt:Uri ne sed:Qn:Micro scopy.light. HPF 11072-3 20-30 A 0-5 10/15/2017 1Erythrocyte 11:10 s:Naric:Pt:U rine sed:Qn:Micro scopy.light. HPF 67925-3 20-30 A 0-10 10/15/2017 1Epithelial 11:10 cells.squamo us:Naric:Pt: Urine sed:Qn:Micro scopy.light. HPF 8247-9 Small A None Seen 10/15/2017 1Mucus:ACnc: 11:10 Pt:Urine sed:Ord:Micr oscopy.light 5769-5 Trace None Seen,Trace 10/15/2017 1Bacteria:Na 11:10 idalia:Pt:Urine sed:Qn:Micro scopy.light. HPF Performing Lab Footnotes:[address] [place] [address] - [id number] - [address] [facility] [address] [place] [address] [facility] - MD: DIRECTOR ZEUS REYES__ ____ Order: VALPROIC ACID LOINC Test Result Flag Range Unit Date 88.5 50.0-120.0 ug/ml 10/15/2017 1Valproic 11:10 Acid Note: Reference Range has been adjusted to reflect Methodology recommendations. Performing Lab Footnotes:[address] [place] [address] - [id number] - [address] [facility] [address] [place] [address] AMADO Dan MD: DIRECTOR ZEUS REYES__ ____ Vital Signs Vitals Value Date BP Systolic 132 mmHg 10/15/2017 BP Diastolic 92 mmHg 10/15/2017 Height 69 in 10/15/2017 Weight Measured 236.11 lbs 10/15/2017 BSA (Body Surface Area) 2.06292 10/15/2017 BMI (Body Mass Index) 34.9 10/15/2017 Body Temperature 98.1 F 10/15/2017 Respiratory Rate 24 10/15/2017 O2% BldC Oximetry 99 10/15/2017 Plan of Care No data in the system Procedures No data in the system Encounters Date Code Diagnosis Status (ICD10) - A34698 EPILEPSY UNS NOT INTRACT W/O SE Active Immunizations No data in the system Functional Status Code Functional/Cognitive Code System Date Status Condition 099864625 Memory function normal SNOMED-CT 10/15/2017 Active 958051350 Orientated SNOMED-CT 10/15/2017 Active 920324894 Mentally alert SNOMED-CT 10/15/2017 Active 370286509 Ability to perform SNOMED-CT 10/15/2017 Active activities of everyday life (observable entity) Hospital Discharge Instructions Discharge Instructions 2No DataBurke staff here to transport to [facility] pt ambulated to [facility] Diagnosisrecurrent seiUresImportant InformationConsult your physician or return to the [...] to any follow-up appointments.Follow-Up With: Primary Care PhysicianActivity LevelAs tolerated, unrestrictedDietRegularPatient TeachingPatient education provided
--- OUTSIDE RECORDS SUMMARY | 2019-07-23 13:00 | XMS REPORT | Continuity of Care Document ---
:1985 Author Organization [facility] Care Team Providers Name Role Phone TOMY ELIAS Admitting Physician TOMY ELIAS Attending Physician Hospital Admission Diagnosis Code Admission Diagnosis Date [id number] Epilepsy, not refractory Social History Element Code Description Smoking Start Date End Date Description Status Code System Smoking Status 956909688 Current every day SNOMED-CT smoker Problems Code Code System Problem Name Start Date End Date Status 558006325 SNOMED-CT Feeling suicidal 10/11/2017 Active 402393139 SNOMED-CT Major depressive 10/11/2017 Active disorder Breakthrough Seizure 10/10/2017 Active 106049626 SNOMED-CT Left hemiparesis 10/10/2017 Active 54292847 SNOMED-CT 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 01001786 SNOMED-CT Seizure 10/10/2017 Active 85562464 SNOMED-CT Seizure 2017 Active 40469184 SNOMED-CT Bipolar disorder Unknown Active 620889495 SNOMED-CT Asthma Unknown Active 21339536 SNOMED-CT Depressive disorder Unknown Active 39159119 SNOMED-CT Posttraumatic stress Unknown Active disorder 74667573 SNOMED-CT Anxiety Unknown Active 23574059 SNOMED-CT Viral hepatitis C Unknown Active 10996015 SNOMED-CT Seizure Unknown Active Medications RxNorm Medication Dose Route Instructions Indications Start End Status Date Date 575011 120 ACTUAT Inhalation inhaled Active Fluticasone propionate 0.22 MG/ACTUAT Metered Dose Inhaler 435 Albuterol Inhalation inhaled Active (administer with spacer;) 89024 aripiprazole Oral orally Active 5553 Hydroxyzine Oral orally Active 604680 Levetiracetam 1500 Oral orally 2 Active milligram times per day 81265 oxcarbazepine Oral orally Active 8629 Prazosin Oral orally Active 25258 quetiapine Oral orally Active Allergies Code Code Allergy Type Reaction Severity Start End Status System Substance Date Date RXNorm IV Dye, Drug Unknown Active Iodine allergy Containing Contrast Media 96208 RXNorm Sulfa(Sulfona Drug Unknown Active mide allergy Antibiotics) 354570 RXNorm peanut Drug Unknown Active allergy RXNorm MISC-FOOD Food Unknown Active allergy Results Laboratory Results Order: CBC PLATELET AUTO DIFF LOINC Test Result Flag Range Unit Date 83861-7 6.65 4.80-10.80 10^3/ul 10/19/2017 1Leukocytes^^correc 15:40 anne for nucleated erythrocytes:NCnc:P t:Bld:Qn:Automated count 789-8 4.53 4.20-5.40 10^6/ul 10/19/2017 1Erythrocytes:NCnc: 15:40 Pt:Bld:Qn:Automated count 718-7 13.7 12.0-14.0 gm/dl 10/19/2017 1Hemoglobin:MCnc:Pt 15:40 :Bld:Qn 4544-3 41.6 37.0-47.0 % 10/19/2017 1Hematocrit:VFr:Pt: 15:40 Bld:Qn:Automated count 787-2 91.8 81.0-99.0 fL 10/19/2017 1Erythrocyte mean 15:40 corpuscular volume:EntVol:Pt:RB C:Qn:Automated count 785-6 30.2 27.0-31.0 pg 10/19/2017 1Erythrocyte mean 15:40 corpuscular hemoglobin:EntMass: Pt:RBC:Qn:Automated count 786-4 32.9 L 33.0-37.0 gm/dl 10/19/2017 1Erythrocyte mean 15:40 corpuscular hemoglobin concentration:MCnc: Pt:RBC:Qn:Automated count 788-0 13.3 11.5-14.5 % 10/19/2017 1Erythrocyte 15:40 distribution width:Ratio:Pt:RBC: Qn:Automated count 777-3 202 130-400 10^3/ul 10/19/2017 1Platelets:NCnc:Pt: 15:40 Bld:Qn:Automated count 57809-1 1Platelet 8.9 A 7.4-10.4 fL 10/19/2017 mean 15:40 volume:EntVol:Pt:Bl d:Qn:Automated count Note: 'NOT MEASURED' RESULTS [...] BE NOTED ON THE REPORT. 770-8 1Neutrophils/100 49.7 42.0-75.0 % 10/19/2017 leukocytes:NFr:Pt:Bld:Qn:Automated 15:40 count 736-9 1Lymphocytes/100 39.4 13.0-42.0 % 10/19/2017 leukocytes:NFr:Pt:Bld:Qn:Automated 15:40 count 5905-5 1Monocytes/100 9.2 4.0-14.0 % 10/19/2017 leukocytes:NFr:Pt:Bld:Qn:Automated 15:40 count 713-8 1Eosinophils/100 1.2 1.0-3.0 % 10/19/2017 leukocytes:NFr:Pt:Bld:Qn:Automated 15:40 count 706-2 1Basophils/100 0.2 L 1.0-3.0 % 10/19/2017 leukocytes:NFr:Pt:Bld:Qn:Automated 15:40 count 1IG% 0.3 0.0-0.4 % 10/19/2017 15:40 Performing Lab Footnotes:[address] [place] [address] - [id number] - [address] [facility] [address] [place] [address] [facility] - MD: DIRECTOR ZEUS REYES__ ____ Order: CMP COMPREHENSIVE METABOLIC PANEL LOINC Test Result Flag Range Unit Date 292-7 101 75-110 mg/dl 10/19/2017 1Glucose:MCnc:Pt 15:40 :Urine:Qn 3094-0 1Urea 14 6.0-17.0 mg/dl 10/19/2017 nitrogen:MCnc:Pt 15:40 :Ser/Plas:Qn 2160-0 0.7 0.4-1.2 mg/dl 10/19/2017 1Creatinine:MCnc 15:40 :Pt:Ser/Plas:Qn 2951-2 141 137-145 mmol/l 10/19/2017 1Sodium:SCnc:Pt: 15:40 Ser/Plas:Qn 2823-3 4.4 3.5-5.0 mmol/l 10/19/2017 1Potassium:SCnc: 15:40 Pt:Ser/Plas:Qn 2075-0 105 98-107 mmol/l 10/19/2017 1Chloride:SCnc:P 15:40 t:Ser/Plas:Qn 8-9 24 22-30 mmol/l 10/19/2017 1Carbon 15:40 dioxide:SCnc:Pt: Ser/Plas:Qn 35247-0 10.1 8.4-10.2 mg/dl 10/19/2017 1Calcium:MCnc:Pt 15:40 :Ser/Plas:Qn 2885-2 7.2 5.1-8.7 gm/dl 10/19/2017 1Protein:MCnc:Pt 15:40 :Ser/Plas:Qn 1751-7 4.4 3.5-4.6 gm/dl 10/19/2017 1Albumin:MCnc:Pt 15:40 :Ser/Plas:Qn 1A/G 1.6 1.1-2.2 % 10/19/2017 Ratio 15:40 1920-8 25 11-36 U/L 10/19/2017 1Aspartate 15:40 aminotransferase :CCnc:Pt:Ser/Abimbola s:Qn 1742-6 33 11-40 U/L 10/19/2017 1Alanine 15:40 aminotransferase :CCnc:Pt:Ser/Abimbola s:Qn 6768-6 49 47-114 U/L 10/19/2017 1Alkaline 15:40 phosphatase:CCnc :Pt:Ser/Plas:Qn 1975-2 0.5 0.2-1.2 mg/dl 10/19/2017 1Bilirubin:MCnc: 15:40 Pt:Ser/Plas:Qn 2.8 2.3-3.5 gm/dl 10/19/2017 1Globulin 15:40 9.8 8.4-10.2 mg/dl 10/19/2017 1Calcium, 15:40 Corrected Note: Various formulas exist for corrected serum calcium results, each yielding different values. This corrected result was based on the formula: Corrected Calcium=SerumCalcium + [0.8 * ( 4 - SerumAlbumin)] 1EGFR >60 mL/min/1.73m^2 10/19/2017 15:40 if 1EGFR >60 mL/min/1.73m^2 10/19/2017 15:40 if Non- Note: Estimated Glomerular Filtration Rate [...] management of chronic kidney failure. Performing Lab Footnotes:[address] [place] [address] - [id number] - [address] [place] [address] [facility] - MD: DIRECTOR ZEUS REYES__ ____ Order: DRUG SCREEN MED LOINC Test Result Flag Range Unit Date 1PH 8.0 10/19/2017 15:40 1.010 10/19/2017 1Specific 15:40 [place] Negative 10/19/2017 1Amphetamines 15:40 Negative 10/19/2017 1BARBITUATES 15:40 Negative 10/19/2017 1Benzodiazepin 15:40 es Negative 10/19/2017 1Cocaine 15:40 Negative 10/19/2017 1Methadone 15:40 Negative 10/19/2017 1Opiates 15:40 Negative 10/19/2017 1PHENCYCLIDINE 15:40 , PCP Note: The following table provides an interpretive guide for the Drugs of Abuse ran on the [employer] 5.1 analyzer listed there in: Amphetamines < 1000 ng/ml=Negative Barbituates < 200 ng/ml=Negative Benzodiazapines < 200 ngml=Negative Cocaine < 300 ng/ml=Negative Methadone < 300 ng/ml=Negative Opiate < 300 ng/ml=Negative PCP < 25 ng/ml=Negative THC < 50 ng/ml=Negative Results equal to or greater than the above cut-off values=Presumptive Positive. Confirmation of Presumptive Positive results are available upon request. Presumptive 10/19/2017 15:40 1Cannabinoids, THC Positive; Confirmation Upon Request Performing Lab Footnotes:[address] [place] [address] [id number] - [address] [place] [address] AMADO Dan MD: DIRECTOR ZEUS REYES__ ____ Order: MAGNESIUM SERUM LOINC Test Result Flag Range Unit Date 2.3 1.6-2.3 mg/dl 10/19/2017 1Magnesium 15:40 Performing Lab Footnotes:[address] [place] [address] [id number] - [address] [place] [address] [place] [address] AMADO Dan MD: DIRECTOR ZEUS REYES__ ____ Order: TEST SERUM QUAL LOINC Test Result Flag Range Unit Date Negative 10/19/2017 1Pregnancy 15:40 (Serum) Performing Lab Footnotes:[address] [place] [address] [id number] - [address] [address] AMADO Dan MD: DIRECTOR ZEUS REYES__ ____ Order: PROTIME PT INR LOINC Test Result Flag Range Unit Date 5902-2 10.4 9.0-11.9 seconds 10/19/2017 1Coagulation 15:40 tissue factor induced:Time: Pt:PPP:Qn:Coa g 6301-6 1 0.9-1.1 10/19/2017 1Coagulation 15:40 tissue factor induced.INR:R elTime:Pt:PPP :Qn:Coag Note: INR results are intended ONLY to monitor Oral Anticoagulant therapy in stablized patients. The INR Therapeutic Range is 2.0 - 3.0 Patients with a mechanical heart, the INR Range is 2.5 - 3.5 Performing Lab Footnotes:[address] [place] [address] [id number] - [address] [address] AMADO Dan MD: DIRECTOR ZEUS REYES__ ____ Order: PTT PARTIAL THROMBOPLASTIN TM LOINC Test Result Flag Range Unit Date 49815-7 28.3 23.0-33.0 seconds 10/19/2017 1Coagulation 15:40 surface induced:Time:P t:PPP:Qn:Coag Performing Lab Footnotes:[address] [place] [address] - [id number] - [address] [address] AMADO Dan MD: DIRECTOR ZEUS REYES__ ____ Order: TSH ULTRA SENSITIVE LOINC Test Result Flag Range Unit Date 0.8 0.47-4.68 mIU/L 10/19/2017 1TS 15:40 Performing Lab Footnotes:[address] [place] [address] - [id number] - [address] [facility] [address] [place] [address] AMADO Dan MD: DIRECTOR ZEUS REYES__ ____ Order: UA URINALYSIS WITH MICROSCOPY LOINC Test Result Flag Range Unit Date 5778-6 YELLOW 10/19/2017 1Color:Type: 15:40 Pt:Urine:Nom 5767-9 CLEAR 10/19/2017 1Appearance: 15:40 Aper:Pt:Urin e:Nom 2349-9 NEGATIVE NEGATIVE 10/19/2017 1Glucose:ACn 15:40 c:Pt:Urine:O rd 5770-3 NEGATIVE NEGATIVE 10/19/2017 1Bilirubin:A 15:40 Cnc:Pt:Urine :Ord:Test strip 2514-8 15 A NEGATIVE 10/19/2017 1Ketones:ACn 15:40 c:Pt:Urine:O rd:Test strip 5811-5 1.015 A 1.005-1.030 10/19/2017 1Specific 15:40 gravity:Rden :Pt:Urine:Qn :Test strip 5794-3 NEGATIVE NEGATIVE 10/19/2017 1Hemoglobin: 15:40 ACnc:Pt:Urin e:Ord:Test strip 5803-2 8.0 A 4.5-8.0 10/19/2017 1pH:LsCnc:Pt 15:40 :Urine:Qn:Te st strip 58975-5 NEGATIVE NEGATIVE 10/19/2017 1Protein:ACn 15:40 c:Pt:Urine:O rd:Test strip 5818-0 0.2 0.2 10/19/2017 1Urobilinoge 15:40 n:ACnc:Pt:Ur ine:Ord:Test strip 5802-4 NEGATIVE NEGATIVE 10/19/2017 1Nitrite:ACn 15:40 c:Pt:Urine:O rd:Test strip 5799-2 NEGATIVE NEGATIVE 10/19/2017 1Leukocyte 15:40 esterase:ACn c:Pt:Urine:O rd:Test strip 5821-4 0-1 A 0-5 10/19/2017 1Leukocytes: 15:40 Naric:Pt:Uri ne sed:Qn:Micro scopy.light. HPF 46181-1 None Seen A 0-5 10/19/2017 1Erythrocyte 15:40 s:Naric:Pt:U rine sed:Qn:Micro scopy.light. HPF 35566-9 40-50 A 0-10 10/19/2017 1Epithelial 15:40 cells.squamo us:Naric:Pt: Urine sed:Qn:Micro scopy.light. HPF 8247-9 Small A None Seen 10/19/2017 1Mucus:ACnc: 15:40 Pt:Urine sed:Ord:Micr oscopy.light 5769-5 1+ A None 10/19/2017 1Bacteria:Na Seen,Trace 15:40 idalia:Pt:Urine sed:Qn:Micro scopy.light. HPF 5782-8 Moderate A None Seen 10/19/2017 1Crystals:Pr Amorphous 15:40 id:Pt:Urine Phosphates sed:Nom:Micr oscopy.light 9842-6 None Seen None Seen 10/19/2017 1Casts:Naric 15:40 :Pt:Urine sed:Qn:Micro scopy.light. LPF Performing Lab Footnotes:[address] [place] [address] - [id number] - [address] [address] [facility] - MD: DIRECTOR ZEUS REYES__ ____ Radiology Results Order: [id number] CT HEAD W/O CONTRASTExam Completion Date:10/19/2017 15:14Procedure: CT HEAD W/O CONTRAST Exam Date: 10/19/2017 3:14 PMOrdering Provider: YOANDY Limoninical Indication: SeizureComparison: 10/10/2017Technique: Using a helical scanner, sequential axial imaging of the brain wasobtained without the administration of intravenous contrast. The exam wasobtained from the skull base to vertex. This exam was performed according to theour departmental dose-optimization program which includes automated exposurecontrol, adjustment of the mA and/or kV according to patient size and/or use ofiterative reconstruction techniques.Findings: Ventricular sizeand configuration are normal. There is no midline shift or hydrocephalus.There is no acute intracranial hemorrhage or mass effect. There is no acute infarct.Cortical francois matter, subcortical white matter, and periventricular white matterhave normal appearance.The calvarium is intact. There is no fracture. There is no lytic or sclerotic lesion.The visualized paranasal sinuses and mastoid air cells areclear.IMPRESSION: Negative CT scan of the brain without intravenous contrast administration.This final report was electronically signed by Dr Louis Zheng MD 10/19/20174:07 PMDictated By: LOUIS ZHENGDate: 10/19/2017 16:13 Vital Signs Vitals Value Date Respiratory Rate 15 10/19/2017 O2% BldC Oximetry 100 10/19/2017 BP Systolic 90 mmHg 10/19/2017 BP Diastolic 59 mmHg 10/19/2017 Height 69 in 10/19/2017 Weight Measured 235.89 lbs 10/19/2017 BSA (Body Surface Area) 2.09623 10/19/2017 BMI (Body Mass Index) 34.9 10/19/2017 Body Temperature 97.6 F 10/19/2017 Plan of Care No data in the system Procedures Code Code System Procedure Name Target Site Date of Procedure CT HEAD W/O 10/19/2017 16:13 CONTRAST Encounters Date Code Diagnosis Status (ICD10) - [id number] EPILEPSY UNS NOT INTRACT W/O SE Active Immunizations No data in the system Functional Status Code Functional/Cognitive Code System Date Status Condition [id number] Orientated SNOMED-CT 10/19/2017 Active 785104420 Mentally alert SNOMED-CT 10/19/2017 Active [id number] Ability to perform SNOMED-CT 10/19/2017 Active activities of everyday life (observable entity) Hospital Discharge Instructions No data in the system
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
[2019-07-23 13:49] LABS: Absolute Lymphocytes (CBC) 1.7 K/uL (0.7-4.9); Basophils % 0.3 % (0-1.3); Hematocrit 38.4 % (36.0-45.0); Lymphocytes % 22.3 % (15.3-44.8); MPV 7.2 fL (7.6-11.3); RBC Red Blood Cell Count 4.08 M/uL (3.86-4.86)
[2019-07-23 13:56] LABS: Protime INR 0.91
[2019-07-23 14:09] LABS: Barbiturates NEGATIVE (NEGATIVE); Benzodiazepines NEGATIVE (NEGATIVE); Cocaine NEGATIVE (NEGATIVE); METHAMPHETAM NEGATIVE (NEGATIVE); Methadone NEGATIVE (NEGATIVE); Opiates NEGATIVE (NEGATIVE); Phencyclidine NEGATIVE (NEGATIVE); THC Cannibis POSITIVE (NEGATIVE)
[2019-07-23 14:09] LABS: ALT/SGPT 23 U/L (12-78); AST/SGOT 11 U/L (15-37); Albumin 3.4 g/dL (3.4-5.0); Alkaline Phosphatase 49 U/L (45-117); BUN Blood Urea Nitrogen 9 mg/dL (7-18); Bicarbonate 22 mmol/L (21-32); Bilirubin Direct 0.1 mg/dL (0-0.2); Bilirubin Total 0.3 mg/dL (0.2-1.0); Glucose Level 85 mg/dL (74-106); Potassium 3.9 mmol/L (3.5-5.1); Protein, Total 7.1 g/dL (6.4-8.2); Sodium Level 138 mmol/L (136-145)
[2019-07-23 15:24] LABS: Specific Gravity 1.015 (1.005-1.030)
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
[2019-07-23] MEDS ORDERED: NA CHLORIDE 0.9% 1,000 ML ONE (16:18)
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
--- NOTE | 2019-07-23 16:21 | EDPHYS ---
Physician Documentation [facility] Name: Lee Ann Verde Age: 34 yrs Sex: Female : 1985 Arrival Date: 07/23/2019 Time: 13:03 Bed 15 Private MD: ED Physician Hao Ramsey HPI: 07/23 15:23 This 34 yrs old Female presents to ER via Ambulatory with complaints of boyd Suicidal Ideation. 15:23 The patient presents to the emergency department with anxiety, depression, a history of boyd substance abuse. Onset: The symptoms/episode began/occurred just prior to arrival. Past psychiatric history: Prior diagnosis: depression. Associated signs and symptoms: Pertinent positives; substance abuse, suicide ideation, . The patient has experienced similar episodes in the past, a few times. FLAVOR MAKER: 13:17 LMP 05/13/2019 iw Historical: - Allergies: 13:17 No Known Allergies; iw - PMHx: 13:17 Bipolar disorder; PTSD; Depression; iw - Immunization history:: Adult Immunizations up to date. - Social history:: Smoking status: Patient uses tobacco products, smokes one-half pack cigarettes per day. - Ebola Screening: : Patient negative for fever greater than or equal to 101.5 degrees Fahrenheit, and additional compatible Ebola Virus Disease symptoms Patient denies exposure to infectious person Patient denies travel to an Ebola-affected area in the 21 days before illness onset No symptoms or risks identified at this time. - Family history:: not pertinent. ROS: 15:23 Constitutional: Negative for fever, chills, and weight loss, Eyes: Negative for injury, boyd pain, redness, and discharge, ENT: Negative for injury, pain, and discharge, Neck: Negative for injury, pain, and swelling, Cardiovascular: Negative for chest pain, palpitations, and edema, Respiratory: Negative for shortness of breath, cough, wheezing, and pleuritic chest pain, Abdomen/GI: Negative for abdominal pain, nausea, vomiting, diarrhea, and constipation, Back: Negative for injury and pain, : Negative for injury, bleeding, discharge, and swelling, MS/Extremity: Negative for injury and deformity, Skin: Negative for injury, rash, and discoloration, Psych: Negative for depression, anxiety, suicide ideation, homicidal ideation, and hallucinations, Allergy/Immunology: Negative for hives, rash, and allergies, Endocrine: Negative for neck swelling, polydipsia, polyuria, polyphagia, and marked weight changes, Hematologic/Lymphatic: Negative for swollen nodes, abnormal bleeding, and unusual bruising. 15:23 Neuro: Positive for seizure activity. Exam: 15:23 Constitutional: This is a well developed, well nourished patient who is awake, alert, boyd and in no acute distress. Head/Face: Normocephalic, atraumatic. Eyes: Pupils equal round and reactive to light, extra-ocular motions intact. Lids and lashes normal. Conjunctiva and sclera are non-icteric and not injected. Cornea within normal limits. Periorbital areas with no swelling, redness, or edema. ENT: Nares patent. No nasal discharge, no septal abnormalities noted. Tympanic membranes are normal and external auditory canals are clear. Oropharynx with no redness, swelling, or masses, exudates, or evidence of obstruction, uvula midline. Mucous membranes moist. Neck: Trachea midline, no thyromegaly or masses palpated, and no cervical lymphadenopathy. Supple, full range of motion without nuchal rigidity, or vertebral point tenderness. No Meningismus. Chest/axilla: Normal chest wall appearance and motion. Nontender with no deformity. No lesions are appreciated. Cardiovascular: Regular rate and rhythm with a normal S1 and S2. No gallops, murmurs, or rubs. Normal PMI, no JVD. No pulse deficits. Respiratory: Lungs have equal breath sounds bilaterally, clear to auscultation and percussion. No rales, rhonchi or wheezes noted. No increased work of breathing, no retractions or nasal flaring. Abdomen/GI: Soft, non-tender, with normal bowel sounds. No distension or tympany. No guarding or rebound. No evidence of tenderness throughout. Back: No spinal tenderness. No costovertebral tenderness. Full range of motion. Skin: Warm, dry with normal turgor. Normal color with no rashes, no lesions, and no evidence of cellulitis. Neuro: Awake and alert, GCS 15, oriented to person, place, time, and situation. Cranial nerves II-XII grossly intact. Motor strength 5/5 in all extremities. Sensory grossly intact. Cerebellar exam normal. Normal gait. Psych: Awake, alert, with orientation to person, place and time. Behavior, mood, and affect are within normal limits. 15:23 Musculoskeletal/extremity: Extremities: noted in the left arm: laceration. Vital Signs: 13:15 BP 119 / 75; Pulse 77; Resp 16; Temp 98.2; Pulse Ox 100% on R/A; Weight 89.81 kg; iw Height 5 ft. 9 in. (175.26 cm); Pain 0/10; 17:06 BP 107 / 63; Pulse 72; Resp 16; Temp 97.5(O); Pulse Ox 100% on R/A; mh5 13:15 Body Mass Index 29.24 (89.81 kg, 175.26 cm) iw MDM: 13:24 Patient medically screened. [facility] 15:27 Data reviewed: vital signs, nurses notes, lab test result(s), radiologic studies, [facility] ultrasound. 07/23 13:24 Order name: Acetaminophen [facility] 07/23 13:24 Order name: Basic Metabolic Panel [facility] 07/23 13:24 Order name: CBC with Diff [facility] 07/23 13:24 Order name: ETOH Level [facility] 07/23 13:24 Order name: Hepatic Function [facility] 07/23 13:24 Order name: PT-INR [facility] 07/23 13:24 Order name: Ptt, Activated [facility] 07/23 13:24 Order name: Salicylate; Complete Time: 15:17 [facility] 07/23 13:24 Order name: Urine Drug Screen [facility] 07/23 13:33 Order name: Urine Dipstick--Ancillary (enter results) [facility] 07/23 13:51 Order name: CBC with Automated Diff; Complete Time: 15:17 [facility] 07/23 14:02 Order name: Protime (+INR); Complete Time: 15:17 [facility] 07/23 14:02 Order name: PTT, Activated Partial Thromb; Complete Time: 15:17 [facility] 07/23 14:07 Order name: Alcohol Serum/Plasma; Complete Time: 15:17 [facility] 07/23 13:24 Order name: Urine Test (obtain specimen); Complete Time: 13:49 [facility] 07/23 13:24 Order name: EKG; Complete Time: 13:26 [facility] 07/23 13:52 Order name: Diet Regular; Complete Time: 13:53 [facility] 07/23 14:14 Order name: Basic Metabolic Panel [facility] 07/23 14:14 Order name: Liver (Hepatic) Function [facility] 07/23 14:14 Order name: Acetaminophen Level [facility] 07/23 14:14 Order name: Urine Drug Screen [facility] 07/23 15:21 Order name: Quantitative Hcg [facility] 07/23 15:21 Order name: Abo/rh Typing [facility] 07/23 15:26 Order name: Test, Urine; Complete Time: 16:14 [facility] 07/23 16:03 Order name: Diet Regular; Complete Time: 16:04 mh5 07/23 16:18 Order name: 1St Trimest Single 1St Fetus [facility] 07/23 13:24 Order name: EKG - Nurse/Tech; Complete Time: 17:59 [facility] 07/23 13:24 Order name: IV Saline Lock; Complete Time: 13:49 [facility] 07/23 13:24 Order name: Labs collected and sent; Complete Time: 13:49 [facility] 07/23 13:24 Order name: Urine Dipstick-Ancillary (obtain specimen); Complete Time: 13:50 [facility] 07/23 15:21 Order name: Wound dressing; Complete Time: 15:25 [facility] Administered Medications: 16:02 Drug: Neosporin Ointment 1 application Route: Topical; Site: affected area; iw 16:45 Drug: NS 0.9% 1000 ml Route: IV; Rate: 1 bolus; Site: left antecubital; iw 17:59 Follow up: IV Status: Completed infusion iw 16:45 Drug: Keppra 1000 mg Route: IV; Rate: per protocol; Site: left antecubital; iw 17:10 Follow up: IV Status: Completed infusion Disposition: 07/23/19 16:18 Transfer ordered to [facility]. Diagnosis are Suicidal ideations, Suicide attempt, Major depressive disorder, recurrent, related conditions, unspecified, Epilepsy and recurrent seizures. - Reason for transfer: Higher level of care. - Accepting physician is to [facility]. - Condition is Stable. - Problem is new. - Symptoms have improved. Signatures: Dispatcher [employer] Hao Brewer MD MD cha Williams, Irene, RN RN iw Corrections: (The following items were deleted from the chart) 16:17 15:24 Transvaginal Ob+US.RAD.BRZ ordered. [facility] 18:04 16:18 07/23/2019 16:18 Transfer ordered to [facility]. Diagnosis is Suicidal iw ideations; Suicide attempt; Major depressive disorder, recurrent; related conditions, unspecified; Epilepsy and recurrent seizures. Reason for transfer: Higher level of care. Accepting physician is to [facility]. Condition is Stable. Problem is new. Symptoms have improved. boyd
[2019-07-23 16:22] LABS: Urine Blood NEGATIVE (NEG); Urine Glucose NEGATIVE (NEG); Urine Protein NEGATIVE (NEG)
[2019-07-23] MEDS ORDERED: levETIRAcetam 1,000 MG in NA CHLORIDE 0.9% 100 ML IV ONE (16:30)
--- NOTE | 2019-07-23 16:57 | EKG ---
Test Date: 2019-07-23 Test Time: 13:25:15 [employer] Salesperson: ELIN MEASUREMENT RESULTS: Intervals: Rate: 69 DC: 136 QRSD: 84 QT: 418 QTc: 447 Dennis: P: 51 DC: 136 QRS: 74 T: 48 INTERPRETIVE STATEMENTS: Normal sinus rhythm Normal ECG No previous ECG available for comparison Electronically Signed On 07-23-19 16:55:32 CDT by Gerardo Borja
[2019-07-23 18:30] VITALS: O2SAT 100
[2019-07-23 18:31] VITALS: BP 107/63; TEMP 97.5
== END 2019-07-23 18:04 | disposition short-term general hospital (02) ==
LOC: ER 12:54
DX: F33.9 Major depressive disorder, recurrent, unspecified (principal); X78.1XXA Intentional self-harm by knife, initial encounter; O99.351 Diseases of the nervous system complicating pregnancy, first trimester; G40.909 Epilepsy, unspecified, not intractable, without status epilepticus; O99.331 Smoking (tobacco) complicating pregnancy, first trimester; F17.210 Nicotine dependence, cigarettes, uncomplicated; Z3A.10 10 weeks gestation of pregnancy
CPT/HCPCS: 36415; 76801; 80048; 80076; 80307; 80320; 80329; 81003; 81025; 84702; 85025; 85610; 85730; 86900; 86901; 93005; 96361; 96365; 99285; J1953; J7030